=== PATIENT | male | born 1960 | race Caucasian/White ===

== ENCOUNTER 2017-05-09 17:43 | Inpatient (IN) | payer OTHER, BC, MEDICARE ==
[~2017-05-09] VITALS: Ht 177.8 cm; Wt 129.8 kg
[2017-05-09] MEDS ORDERED: ETOMIDATE 20 MG/10 ML VIAL ONE ×2 (17:46→18:05)
[2017-05-09] MEDS ORDERED: SUCCINYLCHOLINE CHLORIDE 200 MG/10 ML VIAL ONE (17:46)
[2017-05-09] MEDS ORDERED: ceFAZolin 2 GM PREMIX 50 ML ONE (17:49)
[2017-05-09] MEDS ORDERED: PROPOFOL 1000 MG/100 ML INJ 100 ML ONE ×2 (17:52→20:15)
[2017-05-09] MEDS ORDERED: HYDROmorphone HCL PF 1 MG/ML VIAL ONE (18:05)
[2017-05-09 18:08] LABS: I-STAT POTASSIUM 3.9 MMOL/L (3.5-4.9)
[2017-05-09 18:10] LABS: AUTOMATED NEUTROPHIL # 6.1 TH/MM3 (1.8-7.7); BASOPHIL # 0.1 TH/MM3 (0-0.2); BASOPHIL % 0.6 % (0.0-2.0); EOSINOPHIL # 0.3 TH/MM3 (0-0.4); EOSINOPHIL % 2.3 % (0.0-4.0); HEMATOCRIT 47.3 % (39.0-51.0); LYMPHOCYTE # 5.6 TH/MM3 (1.0-4.8); MEAN CORPUSCULAR HEMOGLOBIN 32.1 PG (27.0-34.0); MEAN CORPUSCULAR HGB CONC 34.1 % (32.0-36.0); MONO % 9.1 % (0.0-8.0); PLATELET COUNT 323 TH/MM3 (150-450); RED BLOOD COUNT 5.04 MIL/MM3 (4.50-5.90); RED CELL DISTRIBUTION WIDTH 13.7 % (11.6-17.2); WHITE BLOOD COUNT 13.3 TH/MM3 (4.0-11.0)
[2017-05-09 18:12] LABS: HEMO FLAGS AUTO DIFF
[2017-05-09] MEDS ORDERED: IOHEXOL 350 MG/ML 10 ML VIAL (for RAD DIAG) IVCONTRAST ONE (18:20)
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
[2017-05-09 18:25] LABS: INTERNATIONAL NORMALIZED RATIO 1.2 RATIO; PROTHROMBIN TIME - PATIENT 13.5 SEC (9.8-11.6)
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
[2017-05-09 18:26] LABS: APTT (PATIENT) 26.6 SEC (24.3-30.1)
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
[2017-05-09 18:40] VITALS: O2SAT 99
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
[2017-05-09 18:45] LABS: BANDS 2 % (0-6); EOSINOPHILS 4 % (0-4); NEUTROPHIL # MANUAL DIFF 6.4 TH/MM3 (1.8-7.7); PLATELET ESTIMATE SMEAR NORMAL (NORMAL); PLATELET MORPHOLOGY NORMAL (NORMAL); POLYS (SEG NEUTROPHILS) 46 % (16-70); SCAN/DIFF FINAL DIFF MANUAL; WBC DIFF SAMPLE 100
[2017-05-09] MEDS ORDERED: ONDANSETRON HCL 4 MG/2 ML VIAL IV PRN (18:45)
[2017-05-09] MEDS ORDERED: CHLORHEXIDINE GLUCONATE 2 % 1 PACK (2 CLOTHS) TOP PRN (18:45)
[2017-05-09] MEDS ORDERED: fentaNYL DRIP 250 ML IV PRN (18:45)
[2017-05-09] MEDS ORDERED: PROPOFOL 1000 MG/100 ML INJ 100 ML IV PRN ×2 (18:45)
[2017-05-09] MEDS ORDERED: ENALAPRILAT 1.25 MG/ML VIAL IV PRN (18:45)
[2017-05-09] MEDS ORDERED: MAGNESIUM HYDROXIDE SUSP 30 ML CUP PO PRN (18:45)
[2017-05-09] MEDS ORDERED: MISCELLANEOUS NURSING INFORMATION XX SCH (18:45)
[2017-05-09 18:46] VITALS: O2SAT 100
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
[2017-05-09 18:59] LABS: BLOOD GAS BASE EXCESS -0.7 mmol/L (-2-2); BLOOD GAS CARBOXYHEMOGLOBIN 3.7 % (0-4); BLOOD GAS HCO3 25 mmol/L (22-26); BLOOD GAS METHEMOGLOBIN 0.9 % (0-2); BLOOD GAS O2 HGB SATURATION 95 % (90-100); BLOOD GAS OXYGEN CONTENT 20.5 Vol % (12.0-20.0); BLOOD GAS PCO2 50 mmHg (38-42); BLOOD GAS PO2 359 mmHg (61-120); BLOOD GAS TOTAL HGB 14.7 G/DL (12.0-16.0); TEMP CORR TO 98.6
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
[2017-05-09 19:00] LABS: CRITICAL VALUE NO; DRAW SITE LT RADIAL; FIO2 100 %; NUMBER OF ARTERIAL PUNCTURES 1; OXYGEN DEVICE VENTILATOR; STAT YES; ULNAR PULSE PRESENT; VENT SETTINGS SEE COMMENTS
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
[2017-05-09] MEDS: SODIUM CHLOR 0.9% 1000 ML INJ 1,000 ML IV SCH (19:45)
[2017-05-09 20:00] VITALS: BP_SYST 105; BP_DIAS 58; BP_DIAS 64; PULSE 78; PULSE 88; PULSE 96; RESP 22; TEMP 97; TEMP 98; O2SAT 100
[2017-05-09] MEDS ORDERED: SODIUM CHLOR 0.9% 1000 ML INJ 1,000 ML IV SCH (20:00)
--- NOTE | 2017-05-09 20:09 | PD.PROCEDR ---
Procedure Note Procedure Procedure: Arterial Line Placement Left radial arterial line Diagnosis: Traumatic brain injury Indications: And need for beat to beat hemodynamic monitoring Consent: Emergent Description of the Procedure: The left wrist was prepped and draped sterilely. 1% lidocaine was used for local anesthesia. The pulse was located and a needle was advanced into the artery. A 20 gauge, 12 cm catheter was advanced into the artery using a modified Seldinger technique. The catheter was sutured to the skin and a sterile dressing was applied. The catheter was connected to a pressure transducer and an arterial waveform was noted. There were no immediate complications noted. There was minimal EBL. I personally performed the procedure. Elder Perez MD May 09, 2017 20:09
--- NOTE | 2017-05-09 20:11 | PD.PROCEDR ---
Procedure Note Procedure Central Line Procedure Note Left subclavian triple lumen catheter Diagnosis: Traumatic brain injury Indications: Need for highly potent vasoactive substances Consent: Emergent Anesthesia: 1% lidocaine locally Description of the Procedure: The patient was placed in the supine, mild- Trendelenburg position. The area was prepped and draped sterilely. A 19g needle was inserted under negative pressure aspiration and dark venous blood was obtained. A guidewire was inserted easily without resistance. A small incision was made using a #11 blade. Using a modified Seldinger technique, the dilator and 7 Hungarian, 20 cm catheter were advanced over the guidewire without resistance. All ports were aspirated and flushed, and had brisk blood return. The line was secured at 16cm at the skin using 2-0 silk interrupted sutures. A Biopatch and Transparent sterile dressing were applied. There were no immediate complications noted. There was minimal EBL. The patient tolerated the procedure well. Ultrasound Guidance: Ultrasound guidance was used to identify the left axillary/ subclavian vein. The vascular anatomy of the left axilla/left anterior chest was normal. The vessel was cannulated under direct, real-time ultrasound visualization. After placement of the guidewire, confirmation of the guidewire in the lumen of the vessel was made using ultrasound visualization, before dilation of the tract. A Chest x-ray has been ordered. I personally performed the procedure. Elder Perez MD May 09, 2017 20:11
[2017-05-09 20:15] VITALS: O2SAT 100
[2017-05-09] MEDS ORDERED: TERBUTALINE INJ 1 MG/ML AMP SQ PRN (20:15)
[2017-05-09] MEDS ORDERED: NOREPINEPHRINE INJ 4 MG in SODIUM CHLOR 0.9% 250 ML INJ 246 ML IV PRN (20:15)
[2017-05-09] MEDS ORDERED: fentaNYL 2,500 MCG/NS 250 ML IV PRN (20:30)
[2017-05-09] MEDS ORDERED: NOREPINEPHRINE 4 MG/D5W 250 ML IV PRN (20:30)
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
[2017-05-09] MEDS ORDERED: MIDAZOLAM HCL 5 MG/ML VIAL (1 ML) IV ONE (21:15)
[2017-05-09] MEDS ORDERED: SODIUM CHLORIDE 23.4% INJ 240 MEQ in SYRINGE/BAG 1 EA IV ONE (21:15)
[2017-05-09] MEDS ORDERED: levETIRAcetam 1000 MG INJ 100 ML IV ONE (21:15)
[2017-05-09] MEDS ORDERED: NOREPINEPHRINE 4 MG/4 ML AMP ONE (21:32)
--- NOTE | 2017-05-09 21:36 | PD.OP ---
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 No family was available for informed consent. The procedure was considered medically necessary on an urgent basis. Appropriate timeout procedure was performed with all personnel present and in agreement The patient was given intravenous sedation during the procedure. The head of the bed was elevated 30 with the head and neck in neutral position. The right frontal area was shaved with clippers and sterilely prepped and draped. 1% Xylocaine with epinephrine was used for local infiltration over the small incision site which was made in the right frontal region approximately 1 cm anterior to the coronal suture in the mid pupillary line and carried sharply down to the cranium. The hand drill was used to place a single twist drill opening in the cranium and the dura was perforated with the 18-gauge spinal needle. The ICP bolt was secured to the cranium. The transducer was zeroed and placed intracranially and secured to the bolt. The patient's initial ICP was 22 mm water pressure with good waveform. A sterile dressing was applied There is no significant bleeding The patient's neurologic exam remained stable following the procedure. Ike Zamarripa MD May 09, 2017 21:36
--- NOTE | 2017-05-09 21:39 | PD.OP ---
Operative Report Date of Surgery: May 09, 2017 Preoperative Diagnosis: (1) Traumatic brain injury Traumatic brain injury Postoperative Diagnosis: (1) Traumatic brain injury Traumatic brain injury Procedure: Right frontal twist drill for external ventricular drain placement Anesthesia: Intravenous sedation 1% Xylocaine local anesthetic Surgeon: Ike Zamarripa [employer] Bus Driver(s): None Operation and Findings: Findings: The patient had previously undergone intracranial pressure monitor placement. ICPs gradually increasing to high 20s to low 30s despite intravenous sedation, ventilatory and fluid management. External ventricular drainage catheter indicated to decrease CSF pressure and ICP. Procedure in detail: The procedure was performed in the surgical intensive care unit. No family was available for informed consent. The procedure was considered medically necessary on an urgent basis. Appropriate timeout procedure was performed with all personnel present and in agreement The patient was placed in supine position with the head and neck in neutral position and the head of the bed elevated approximately 20. The right frontal region was shaved with clippers and sterilely prepped and draped. One percent Xylocaine without epinephrine was used for local infiltration over the small incision site which was made approximately 9-10 cm above the right supraorbital rim, approximately 3-1/2 to 4 cm lateral to the midline, in the mid pupillary line just anterior to the coronal suture. The hand drill was used to make a single twist drill opening in the cranium and the dura was perforated with the trocar. The Codman Bactiseal ventriculostomy catheter was advanced to a depth of 6-7 cm intracranial in a single pass with good return of spinal fluid. Opening pressure was 20 centimeter water The catheter was tunneled to the posterior frontal region with a trocar and secured to the skin with 3-0 nylon suture which was also used to close the small incision. A sterile bactericidal dressing was applied The catheter was connected to the drainage reservoir, and there was good drainage of fluid. The patient's neurologic exam remained stable following the procedure No specimen was sent There was no significant bleeding Ike Zamarripa MD May 09, 2017 21:39
--- NOTE | 2017-05-09 21:44 | RADRPT ---
EXAM DATE/TIME: 05/09/2017 20:12 [facility] COMPARISON: CT THORAX W CONTRAST, May 09, 2017, 18:10. CHEST SINGLE AP, May 09, 2017, 17:37. INDICATIONS : Evaluate for central line placement. MEDICAL HISTORY : None. SURGICAL HISTORY : None. ENCOUNTER: Subsequent ACUITY: 1 day PAIN SCORE: Non-responsive. LOCATION: chest FINDINGS: A single view of the chest demonstrates a left subclavian line with the tip seen at the distal aspect the left subclavian vein region. A pneumothorax is not seen. ET tube and NG tube are well placed. Th e heart size is normal. There is increased density at the medial left base. Right lung is grossly jorge ar. CONCLUSION: 1. Left subclavian line in place with the tip at the distal left subclavian region. No pneumothorax i s seen. 2. Consolidation or atelectasis of the medial left base. Kip Ramirez MD on May 09, 2017 at 21:41 Board Certified Radiologist. This report was verified electronically.
[2017-05-09] MEDS ORDERED: MAGNESIUM OXIDE 400 MG TAB PO PRN (22:00)
[2017-05-09] MEDS ORDERED: POTASSIUM PHOSPHATE MONOBASIC 500 MG TAB PO/TUBE PRN (22:00)
[2017-05-09] MEDS ORDERED: MIDAZOLAM HCL 5 MG/5 ML VIAL IV PUSH PRN (22:00)
[2017-05-09] MEDS ORDERED: POTASSIUM PHOSPHATE MONOBASIC 500 MG TAB PO PRN (22:00)
[2017-05-09] MEDS ORDERED: MAGNESIUM SULFATE INJ 2 GM in SODIUM CHLORIDE 0.9% INJ 96 ML IV PRN (22:00)
[2017-05-09] MEDS ORDERED: POTASSIUM PHOSPHATE INJ 30 MMOL in SODIUM CHLOR 0.9% 250 ML INJ 250 ML IV PRN (22:00)
[2017-05-09] MEDS ORDERED: MAGNESIUM SULFATE INJ 4 GM in SODIUM CHLORIDE 0.9% INJ 92 ML IV PRN (22:00)
[2017-05-09] MEDS ORDERED: SODIUM PHOSPHATE INJ 30 MMOL in SODIUM CHLOR 0.9% 250 ML INJ 240 ML IV PRN (22:00)
[2017-05-09] MEDS ORDERED: POTASSIUM CHLORIDE 25 MEQ EFFERVESCENT TAB PO PRN (22:00)
[2017-05-09 22:28] LABS: BLOOD GAS BASE EXCESS -0.9 mmol/L (-2-2); BLOOD GAS CARBOXYHEMOGLOBIN 2.6 % (0-4); BLOOD GAS HCO3 23 mmol/L (22-26); BLOOD GAS METHEMOGLOBIN 1.2 % (0-2); BLOOD GAS O2 HGB SATURATION 96 % (90-100); BLOOD GAS PCO2 36 mmHg (38-42); BLOOD GAS PO2 184 mmHg (61-120); BLOOD GAS TOTAL HGB 13.1 G/DL (12.0-16.0); CRITICAL VALUE NO; OXYGEN DEVICE VENTILATOR; TEMP CORR TO 98.6
[2017-05-09 22:29] LABS: DRAW SITE ALINE; FIO2 50 %; STAT NO
[2017-05-09 22:29] LABS: BLOOD GAS CARBOXYHEMOGLOBIN 3.3 % (0-4); BLOOD GAS HCO3 25 mmol/L (22-26); BLOOD GAS METHEMOGLOBIN 0.9 % (0-2); BLOOD GAS O2 HGB SATURATION 94 % (90-100); BLOOD GAS OXYGEN CONTENT 19.4 Vol % (12.0-20.0); BLOOD GAS PCO2 44 mmHg (38-42); BLOOD GAS PO2 129 mmHg (61-120); BLOOD GAS TOTAL HGB 14.5 G/DL (12.0-16.0); CRITICAL VALUE NO; OXYGEN DEVICE VENTILATOR; TEMP CORR TO 98.6
[2017-05-09 22:30] LABS: DRAW SITE ALINE; FIO2 50 %; STAT NO
--- NOTE | 2017-05-09 23:13 | RADRPT ---
EXAM DATE/TIME: 05/09/2017 21:58 [facility] COMPARISON: CT BRAIN W/O CONTRAST, May 09, 2017, 18:05. INDICATIONS : Follow up trauma; post ventriculostomy / ICP monitor. RADIATION DOSE: 69.15 CTDIvol (mGy) MEDICAL HISTORY : Non-responsive. SURGICAL HISTORY : Non-responsive. ENCOUNTER: Subsequent ACUITY: 1 day PAIN SCALE: Non-responsive LOCATION: cranial TECHNIQUE: Multiple contiguous axial images were obtained of the head. Using automated exposure control and adj ustment of the mA and/or kV according to patient size, radiation dose was kept as low as reasonably a chievable to obtain optimal diagnostic quality images. DICOM format image data is available electro nically for review and comparison. FINDINGS: CEREBRUM: There is diffuse subarachnoid hemorrhage. Again noted is a 3.3 cm left frontal lobe parenchymal hemor rhage. There is also parenchymal hemorrhage seen at the lateral left temporal lobe. There is a possib le focal parenchymal hemorrhage in the superior right frontal lobe and anterior right temporal lobe w hich were present previously. There is a minimal subdural hemorrhage seen at the posterior left parie michael lobe. There is a minimal subdural hemorrhage seen at the anterior right frontal lobe. There likel y is subdural hemorrhage along the tentorium especially on the right. All these areas of hemorrhage w ere present previously and appear unchanged. Midline shift is not seen. This ventriculostomy tube shawn jermaine from the right frontal approach with the tip overlying the left foramen of Monro region. There is a pressure monitor in place. The ventricles do appear compressed. The basal cisterns are moderately narrowed but still open. This configuration is unchanged.. POSTERIOR FOSSA: The cerebellum and brainstem are intact. The 4th ventricle is compressed. The cerebellopontine angl e is unremarkable. EXTRACRANIAL: The visualized portion of the orbits is intact. Posterior scalp and left periorbital soft tissue swel ling is seen. SKULL: Again noticed the left frontal and parietal bone fractures. CONCLUSION: 1. Persistent subarachnoid, bilateral subdural, and scattered parenchymal hemorrhages as described ab ove. These were present previously and are unchanged. There is effacement of the basal cisterns and c ompression of the ventricles. This configuration is unchanged. 2. Ventriculostomy tube and pressure monitor in place. 3. No new areas of hemorrhage or new findings are seen. Kip Ramirez MD on May 09, 2017 at 23:04 Board Certified Radiologist. This report was verified electronically.
[2017-05-10] VITALS (18 sets, daily range): BP systolic 105–149; BP diastolic 58–73; PULSE 68–96; RESP 22; TEMP 98–99.1; O2SAT 98–100
[2017-05-10] MEDS: PROPOFOL 1000 MG/100 ML IV PRN ×8 (00:09→22:16)
[2017-05-10] MEDS: PANTOPRAZOLE SODIUM 40 MG VIAL IVP SCH ×2 (00:10→20:31)
[2017-05-10] MEDS: 3% SALINE INJ 500 ML IV SCH ×2 (00:14→11:02)
[2017-05-10] MEDS: fentaNYL DRIP 250 ML IV PRN ×4 (00:15→23:27)
[2017-05-10] MEDS: SODIUM CHLOR 0.9% 1000 ML INJ 1,000 ML IV SCH ×3 (03:45→20:33)
[2017-05-10 03:48] LABS: AUTOMATED NEUTROPHIL # 5.8 TH/MM3 (1.8-7.7); BASOPHIL % 0.4 % (0.0-2.0); EOSINOPHIL # 0.1 TH/MM3 (0-0.4); EOSINOPHIL % 1.3 % (0.0-4.0); HEMATOCRIT 36.2 % (39.0-51.0); HEMO FLAGS DIFF FINAL; LYMPH % 25.3 % (9.0-44.0); LYMPHOCYTE # 2.4 TH/MM3 (1.0-4.8); MEAN CELL VOLUME 93.1 FL (80.0-100.0); MEAN CORPUSCULAR HEMOGLOBIN 31.6 PG (27.0-34.0); MONO % 11.3 % (0.0-8.0); NEUT % 61.7 % (16.0-70.0); PLATELET COUNT 261 TH/MM3 (150-450); RED BLOOD COUNT 3.88 MIL/MM3 (4.50-5.90); RED CELL DISTRIBUTION WIDTH 13.6 % (11.6-17.2); WHITE BLOOD COUNT 9.4 TH/MM3 (4.0-11.0)
[2017-05-10] MEDS: CHLORHEXIDINE GLUCONATE 2 % 1 PACK (2 CLOTHS) TOP SCH (04:00)
[2017-05-10] MEDS ORDERED: TERBUTALINE INJ 1 MG/ML AMP SQ PRN ×2 (04:30→05:45)
--- NOTE | 2017-05-10 05:30 | RADRPT ---
EXAM DATE/TIME: 05/10/2017 03:56 [facility] COMPARISON: CHEST SINGLE AP, May 09, 2017, 20:12. INDICATIONS : Trauma. MEDICAL HISTORY : Non-responsive. SURGICAL HISTORY : Non-responsive. ENCOUNTER: Subsequent ACUITY: 1 day PAIN SCORE: Non-responsive. LOCATION: Bilateral chest FINDINGS: A single view of the chest demonstrates endotracheal tube in satisfactory position. NG tube in stomac h. Minimal subsegmental basilar air space disease. No pneumothorax. Left central line in left brachio cephalic vein.. CONCLUSION: 1. Support apparatus in good position. Subsegmental basilar airspace disease. Santiago Dodd MD on May 10, 2017 at 5:28 Board Certified Radiologist. This report was verified electronically.
[2017-05-10] MEDS ORDERED: NOREPINEPHRINE 4 MG/4 ML AMP ONE (05:42)
[2017-05-10] MEDS: NOREPINEPHRINE INJ 4 MG in SODIUM CHLOR 0.9% 250 ML INJ 246 ML IV PRN ×3 (05:58→16:29)
[2017-05-10] MEDS ORDERED: BISACODYL 10 MG SUPP RECTAL PRN (07:45)
[2017-05-10] MEDS: CHLORHEXIDINE 0.12% (ORAL KIT) 15 ML CUP MT SCH ×2 (08:00→20:00)
[2017-05-10] MEDS: DOCUSATE SODIUM 100 MG/10 ML UDC PO SCH ×2 (09:00→20:31)
[2017-05-10] MEDS: LACTULOSE SYRUP 20 GM/30 ML CUP PO SCH (09:27)
[2017-05-10] MEDS: levETIRAcetam INJ 500 MG in SODIUM CHLORIDE 0.9% INJ 100 ML IV SCH ×2 (09:28→20:31)
[2017-05-10 09:44] LABS: BLOOD GAS BASE EXCESS -1.9 mmol/L (-2-2); BLOOD GAS CARBOXYHEMOGLOBIN 1.6 % (0-4); BLOOD GAS HCO3 22 mmol/L (22-26); BLOOD GAS METHEMOGLOBIN 1.1 % (0-2); BLOOD GAS O2 HGB SATURATION 96 % (90-100); BLOOD GAS OXYGEN CONTENT 16.9 Vol % (12.0-20.0); BLOOD GAS PCO2 33 mmHg (38-42); BLOOD GAS PO2 127 mmHg (61-120); BLOOD GAS TOTAL HGB 12.3 G/DL (12.0-16.0); CRITICAL VALUE NO; OXYGEN DEVICE VENTILATOR; TEMP CORR TO 98.6
[2017-05-10 09:45] LABS: DRAW SITE ART LINE; FIO2 35 %; STAT NO
[2017-05-10] MEDS ORDERED: MIDAZOLAM HCL 5 MG/ML VIAL (1 ML) ONE (10:29)
[2017-05-10] MEDS ORDERED: MIDAZOLAM HCL 5 MG/ML VIAL (1 ML) IV ONE (10:45)
[2017-05-10] MEDS ORDERED: SODIUM CHLORIDE 23.4% INJ 240 MEQ in SYRINGE/BAG 1 EA IV ONE (10:45)
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
--- NOTE | 2017-05-10 12:46 | RADRPT ---
EXAM DATE/TIME: 05/10/2017 12:09 [facility] COMPARISON: CT BRAIN W/O CONTRAST, May 09, 2017, 21:58. INDICATIONS : Follow up for intracranial hemmorhage. RADIATION DOSE: 64.99 CTDIvol (mGy) MEDICAL HISTORY : Non-responsive. SURGICAL HISTORY : Non-responsive. ENCOUNTER: Subsequent ACUITY: 1 day PAIN SCALE: Non-responsive LOCATION: cranial TECHNIQUE: Multiple contiguous axial images were obtained of the head. Using automated exposure control and adj ustment of the mA and/or kV according to patient size, radiation dose was kept as low as reasonably a chievable to obtain optimal diagnostic quality images. DICOM format image data is available electro nically for review and comparison. FINDINGS: Diffuse subarachnoid blood, subdural tentorial blood and extensive cortical contusions remain. The c ortical contusions in parietal hemorrhages are blossoming as expected. There is generalized edema wi th ventriculostomy in good position. Both pressure margin is evident. Marked loss of shay-white mat ter differentiation is evident. There is no significant extra-axial blood that could be drained. CONCLUSION: Markedly abnormal CT scan with progression of cortical and parenchymal hemorrhages particularly on th e left. There is no midline shift. Diffuse axonal shear is very likely. Ernie Stapleton MD FACR on May 10, 2017 at 12:42 Board Certified Radiologist. This report was verified electronically.
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
[2017-05-10 15:47] LABS: BICARBONATE 22.8 MEQ/L (21.0-32.0); POTASSIUM 3.5 MEQ/L (3.5-5.1)
[2017-05-10] MEDS: POTASSIUM CHLOR 20 MEQ PREMIX 100 ML IV PRN (16:46)
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
[2017-05-10] MEDS: SODIUM CHLORIDE 0.9% FLUSH 10 ML FLUSH IV FLUSH PRN (20:31)
[2017-05-10] MEDS: BACITRACIN TOP OINT 15 GM TUBE TOP SCH ×2 (20:31→20:33)
[2017-05-10] MEDS: MIDAZOLAM 100 MG/100 ML INJ 100 ML IV PRN (20:59)
[2017-05-11] VITALS (18 sets, daily range): BP systolic 119–158; BP diastolic 60–85; PULSE 72–88; RESP 22–24; TEMP 97.7–99; O2SAT 99–100
[2017-05-11] MEDS: NOREPINEPHRINE INJ 4 MG in SODIUM CHLOR 0.9% 250 ML INJ 246 ML IV PRN ×3 (00:25→19:52)
[2017-05-11] MEDS: PROPOFOL 1000 MG/100 ML IV PRN ×6 (01:42→18:12)
[2017-05-11] MEDS ORDERED: MIDAZOLAM HCL 5 MG/ML VIAL (1 ML) IV ONE (03:30)
[2017-05-11] MEDS ORDERED: SODIUM CHLORIDE 23.4% INJ 240 MEQ in SYRINGE/BAG 1 EA IV ONE ×2 (03:30→12:00)
[2017-05-11 03:31] LABS: BLOOD GAS BASE EXCESS -3.6 mmol/L (-2-2); BLOOD GAS CARBOXYHEMOGLOBIN 1.5 % (0-4); BLOOD GAS HCO3 21 mmol/L (22-26); BLOOD GAS O2 HGB SATURATION 96 % (90-100); BLOOD GAS OXYGEN CONTENT 15.5 Vol % (12.0-20.0); BLOOD GAS PCO2 34 mmHg (38-42); BLOOD GAS PO2 115 mmHg (61-120); BLOOD GAS TOTAL HGB 11.3 G/DL (12.0-16.0); CRITICAL VALUE NO; OXYGEN DEVICE VENTILATOR; TEMP CORR TO 98.6
[2017-05-11 03:32] LABS: DRAW SITE ART LINE; FIO2 35 %; STAT YES; VENT SETTINGS PRVC/AC
[2017-05-11] MEDS: SODIUM CHLOR 0.9% 1000 ML INJ 1,000 ML IV SCH ×3 (03:33→18:12)
[2017-05-11] MEDS: CHLORHEXIDINE GLUCONATE 2 % 1 PACK (2 CLOTHS) TOP SCH (04:00)
[2017-05-11 04:58] LABS: AUTOMATED NEUTROPHIL # 6.7 TH/MM3 (1.8-7.7); BASOPHIL % 0.3 % (0.0-2.0); EOSINOPHIL # 0.3 TH/MM3 (0-0.4); EOSINOPHIL % 2.6 % (0.0-4.0); HEMATOCRIT 32.7 % (39.0-51.0); HEMO FLAGS DIFF FINAL; LYMPH % 15.8 % (9.0-44.0); LYMPHOCYTE # 1.5 TH/MM3 (1.0-4.8); MEAN CELL VOLUME 94.7 FL (80.0-100.0); MEAN CORPUSCULAR HEMOGLOBIN 33.1 PG (27.0-34.0); MONO % 11.3 % (0.0-8.0); PLATELET COUNT 186 TH/MM3 (150-450); RED BLOOD COUNT 3.45 MIL/MM3 (4.50-5.90); WHITE BLOOD COUNT 9.6 TH/MM3 (4.0-11.0)
[2017-05-11 05:10] LABS: ANION GAP 8 MEQ/L (5-15); AST (GOT) 16 U/L (15-37); BICARBONATE 22.5 MEQ/L (21.0-32.0); BLOOD UREA NITROGEN 6 MG/DL (7-18); CHLORIDE 125 MEQ/L (98-107); GLOMERULAR FILTRATION RATE 101 ML/MIN (>89); POTASSIUM 3.3 MEQ/L (3.5-5.1); SODIUM (NA) 155 MEQ/L (136-145)
[2017-05-11 05:14] LABS: ALKALINE PHOSPHATASE 58 U/L (45-117); ALT (GPT) 9 U/L (12-78); TOTAL BILIRUBIN ADULT 0.6 MG/DL (0.2-1.0)
[2017-05-11] MEDS: 3% SALINE INJ 500 ML IV SCH (06:01)
[2017-05-11] MEDS: MIDAZOLAM 100 MG/100 ML INJ 100 ML IV PRN ×2 (06:01→14:40)
--- NOTE | 2017-05-11 06:12 | RADRPT ---
EXAM DATE/TIME: 05/11/2017 05:01 [place] COMPARISON: CHEST SINGLE AP, May 10, 2017, 3:56. INDICATIONS : Shortness of breath. MEDICAL HISTORY : Non-responsive SURGICAL HISTORY : Non-responsive ENCOUNTER: Subsequent ACUITY: 3 days PAIN SCORE: Non-responsive. LOCATION: Bilateral chest FINDINGS: A single view of the chest demonstrates endotracheal tube tip in good position. NG enters stomach. Mi ld basilar airspace disease most characteristic of atelectasis. Left central line in left brachioceph alic vein. No significant effusion. CONCLUSION: 1. Increase in basilar airspace disease since May 2. Support apparatus unchanged. Santiago Dodd MD on May 11, 2017 at 6:09 Board Certified Radiologist. This report was verified electronically.
[2017-05-11] MEDS: POTASSIUM CHLOR 20 MEQ PREMIX 100 ML IV PRN (07:41)
[2017-05-11] MEDS: DOCUSATE SODIUM 100 MG/10 ML UDC PO SCH ×2 (09:10→19:51)
[2017-05-11] MEDS: LACTULOSE SYRUP 20 GM/30 ML CUP PO SCH (09:10)
[2017-05-11] MEDS: levETIRAcetam INJ 500 MG in SODIUM CHLORIDE 0.9% INJ 100 ML IV SCH ×2 (09:10→19:51)
[2017-05-11] MEDS: BACITRACIN TOP OINT 15 GM TUBE TOP SCH ×2 (09:11→19:51)
[2017-05-11] MEDS: CHLORHEXIDINE 0.12% (ORAL KIT) 15 ML CUP MT SCH ×2 (09:11→19:51)
--- NOTE | 2017-05-11 09:23 | EKG ---
Date Performed: 05/10/2017 Time Performed: 16:58:24 PTAGE: 89 years EKG: Atrial fibrillation. Extensive ST-T changes may be due to myocardial ischemia Abnormal ECG NO PREVIOUS TRACING DOCTOR: Bret Alonzo Interpretating Date/Time 05/11/2017 09:21:16
[2017-05-11] MEDS: fentaNYL DRIP 250 ML IV PRN ×2 (10:24→19:52)
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
[2017-05-11] MEDS: PANTOPRAZOLE SODIUM 40 MG VIAL IVP SCH (19:51)
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
[2017-05-12] VITALS (21 sets, daily range): BP systolic 122–141; BP diastolic 56–66; PULSE 68–90; RESP 22–24; TEMP 97.1–98.2; O2SAT 99–100
[2017-05-12] MEDS: PROPOFOL 1000 MG/100 ML IV PRN ×9 (00:34→23:05)
[2017-05-12] MEDS: 3% SALINE INJ 500 ML IV SCH ×2 (00:35→16:22)
[2017-05-12] MEDS: SODIUM CHLOR 0.9% 1000 ML INJ 1,000 ML IV SCH ×3 (02:23→21:33)
[2017-05-12] MEDS: MIDAZOLAM 100 MG/100 ML INJ 100 ML IV PRN ×3 (02:23→21:31)
[2017-05-12] MEDS: CHLORHEXIDINE GLUCONATE 2 % 1 PACK (2 CLOTHS) TOP SCH (04:00)
[2017-05-12 05:06] LABS: AUTOMATED NEUTROPHIL # 5.1 TH/MM3 (1.8-7.7); BASOPHIL % 0.3 % (0.0-2.0); EOSINOPHIL # 0.3 TH/MM3 (0-0.4); EOSINOPHIL % 3.5 % (0.0-4.0); HEMO FLAGS DIFF FINAL; LYMPH % 16.9 % (9.0-44.0); LYMPHOCYTE # 1.2 TH/MM3 (1.0-4.8); MEAN CELL VOLUME 94.4 FL (80.0-100.0); MEAN CORPUSCULAR HEMOGLOBIN 32.2 PG (27.0-34.0); MEAN CORPUSCULAR HGB CONC 34.1 % (32.0-36.0); MONO % 8.8 % (0.0-8.0); NEUT % 70.5 % (16.0-70.0); PLATELET COUNT 169 TH/MM3 (150-450); RED BLOOD COUNT 3.28 MIL/MM3 (4.50-5.90); RED CELL DISTRIBUTION WIDTH 13.9 % (11.6-17.2); WHITE BLOOD COUNT 7.2 TH/MM3 (4.0-11.0)
[2017-05-12 05:17] LABS: BLOOD GAS BASE EXCESS -6.7 mmol/L (-2-2); BLOOD GAS CARBOXYHEMOGLOBIN 1.4 % (0-4); BLOOD GAS HCO3 17 mmol/L (22-26); BLOOD GAS METHEMOGLOBIN 0.8 % (0-2); BLOOD GAS O2 HGB SATURATION 96 % (90-100); BLOOD GAS OXYGEN CONTENT 14.2 Vol % (12.0-20.0); BLOOD GAS PCO2 28 mmHg (38-42); BLOOD GAS PO2 102 mmHg (61-120); BLOOD GAS TOTAL HGB 10.4 G/DL (12.0-16.0); CRITICAL VALUE NO; OXYGEN DEVICE VENTILATOR; TEMP CORR TO 98.6
[2017-05-12 05:18] LABS: DRAW SITE ALINE; FIO2 35 %; STAT NO; ULNAR PULSE PRESENT; VENT SETTINGS PRVC24/550/1.0/+5
[2017-05-12] MEDS: fentaNYL DRIP 250 ML IV PRN ×2 (05:18→13:42)
[2017-05-12 05:27] LABS: ANION GAP 6 MEQ/L (5-15); AST (GOT) 19 U/L (15-37); BICARBONATE 19.7 MEQ/L (21.0-32.0); BLOOD UREA NITROGEN 6 MG/DL (7-18); CHLORIDE 127 MEQ/L (98-107); GLOMERULAR FILTRATION RATE 136 ML/MIN (>89); SODIUM (NA) 153 MEQ/L (136-145)
[2017-05-12 05:29] LABS: ALT (GPT) 10 U/L (12-78)
[2017-05-12 05:30] LABS: ALKALINE PHOSPHATASE 61 U/L (45-117); TOTAL BILIRUBIN ADULT 0.6 MG/DL (0.2-1.0)
[2017-05-12] MEDS: NOREPINEPHRINE INJ 4 MG in SODIUM CHLOR 0.9% 250 ML INJ 246 ML IV PRN ×2 (06:10→14:37)
--- NOTE | 2017-05-12 06:23 | RADRPT ---
EXAM DATE/TIME: 05/12/2017 05:41 [facility] COMPARISON: CHEST SINGLE AP, May 11, 2017, 5:01. INDICATIONS : Shortness of breath. MEDICAL HISTORY : Unobtainable SURGICAL HISTORY : Unobtainable ENCOUNTER: Subsequent ACUITY: 4 - 6 days PAIN SCORE: Non-responsive. LOCATION: Bilateral chest FINDINGS: Persistent bibasilar consolidation and small effusions. No pneumothorax. Heart size stable, upper drake its of normal. Endotracheal tube tip is approximately 5 cm above the dagoberto. Nasogastric tube is coiled in the stoma ch. CONCLUSION: No significant change. Bibasilar consolidation and small pleural effusions persist. Kip Luong MD on May 12, 2017 at 6:20 Board Certified Radiologist. This report was verified electronically.
[2017-05-12] MEDS: POTASSIUM CHLOR 20 MEQ PREMIX 100 ML IV PRN ×2 (06:49→13:01)
[2017-05-12] MEDS: LACTULOSE SYRUP 20 GM/30 ML CUP PO SCH (08:25)
[2017-05-12] MEDS: DOCUSATE SODIUM 100 MG/10 ML UDC PO SCH ×2 (08:25→21:03)
[2017-05-12] MEDS: CHLORHEXIDINE 0.12% (ORAL KIT) 15 ML CUP MT SCH ×2 (08:26→21:03)
[2017-05-12] MEDS: levETIRAcetam INJ 500 MG in SODIUM CHLORIDE 0.9% INJ 100 ML IV SCH ×2 (08:26→21:03)
[2017-05-12] MEDS: BACITRACIN TOP OINT 15 GM TUBE TOP SCH ×2 (08:27→21:03)
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
[2017-05-12] MEDS: POTASSIUM CHLOR 40 MEQ PREMIX 100 ML IV PRN (09:23)
--- NOTE | 2017-05-12 10:57 | RADRPT ---
EXAM DATE/TIME: 05/12/2017 09:34 [facility] COMPARISON: No previous studies available for comparison. INDICATIONS : Swelling in left knee. MEDICAL HISTORY : unobtainable. SURGICAL HISTORY : unobtainable. ENCOUNTER: Subsequent ACUITY: 3 days PAIN SCORE: Non-responsive. LOCATION: Left Knee FINDINGS: There is no effusion. There is severe osteoarthritis of the knee and previous surgery to the ACL with interference screws noted. Severe narrowing of the medial greater than lateral tibiofemoral compartm ents identified. Patellar osteophytosis and patellofemoral narrowing. No fracture or dislocation. CONCLUSION: Osteoarthritis. Zain Vicente MD on May 12, 2017 at 10:55 Board Certified Radiologist. This report was verified electronically.
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
[2017-05-12] MEDS ORDERED: SODIUM CHLORIDE 23.4% INJ 240 MEQ in SYRINGE/BAG 1 EA IV ONE (13:00)
[2017-05-12] MEDS: PANTOPRAZOLE SODIUM 40 MG VIAL IVP SCH (21:02)
[2017-05-13] VITALS (17 sets, daily range): BP systolic 118–153; BP diastolic 60–73; PULSE 74–93; RESP 22; TEMP 97.5–99.9; O2SAT 95–100
[2017-05-13] MEDS: fentaNYL DRIP 250 ML IV PRN ×3 (00:19→20:14)
[2017-05-13] MEDS: NOREPINEPHRINE INJ 4 MG in SODIUM CHLOR 0.9% 250 ML INJ 246 ML IV PRN ×3 (01:13→21:12)
[2017-05-13] MEDS ORDERED: SODIUM CHLORIDE 23.4% INJ 240 MEQ in SYRINGE/BAG 1 EA IV ONE ×2 (01:15→21:00)
[2017-05-13] MEDS: PROPOFOL 1000 MG/100 ML IV PRN ×8 (02:16→23:13)
[2017-05-13] MEDS: CHLORHEXIDINE GLUCONATE 2 % 1 PACK (2 CLOTHS) TOP SCH (04:00)
[2017-05-13 04:36] LABS: BLOOD GAS BASE EXCESS -7.3 mmol/L (-2-2); BLOOD GAS CARBOXYHEMOGLOBIN 1.4 % (0-4); BLOOD GAS HCO3 17 mmol/L (22-26); BLOOD GAS METHEMOGLOBIN 0.9 % (0-2); BLOOD GAS O2 HGB SATURATION 96 % (90-100); BLOOD GAS OXYGEN CONTENT 13.8 Vol % (12.0-20.0); BLOOD GAS PCO2 31 mmHg (38-42); BLOOD GAS PO2 107 mmHg (61-120); BLOOD GAS TOTAL HGB 10.1 G/DL (12.0-16.0); CRITICAL VALUE NO; OXYGEN DEVICE VENTILATOR; TEMP CORR TO 98.6
[2017-05-13 04:37] LABS: DRAW SITE ART LINE; FIO2 35 %; STAT NO; VENT SETTINGS PRVC/AC
[2017-05-13] MEDS: SODIUM CHLOR 0.9% 1000 ML INJ 1,000 ML IV SCH (05:42)
--- NOTE | 2017-05-13 06:08 | RADRPT ---
EXAM DATE/TIME: 05/13/2017 04:45 [facility] COMPARISON: CT ABDOMEN & PELVIS W CONTRAST, May 09, 2017, 18:10. CHEST SINGLE AP, May 12, 2017, 5:41 . INDICATIONS : Short of breath. MEDICAL HISTORY : None. SURGICAL HISTORY : None. ENCOUNTER: Subsequent ACUITY: 4 - 6 days PAIN SCORE: 0/10 LOCATION: Bilateral chest FINDINGS: Stable ETT and suction type NGT. Small bilateral pleural effusions and associated lower lobe airspace disease. Cardiomediastinal contours are stable. Remainder of exam is unchanged. CONCLUSION: 1. Stable small bilateral pleural effusions and associated by basilar airspace disease. 2. No significant interval change. Kevon Burns MD on May 13, 2017 at 6:04 Board Certified Radiologist. This report was verified electronically.
[2017-05-13 06:18] LABS: AUTOMATED NEUTROPHIL # 3.7 TH/MM3 (1.8-7.7); BASOPHIL % 0.5 % (0.0-2.0); EOSINOPHIL # 0.2 TH/MM3 (0-0.4); HEMATOCRIT 30.7 % (39.0-51.0); HEMO FLAGS DIFF FINAL; LYMPH % 19.3 % (9.0-44.0); LYMPHOCYTE # 1.1 TH/MM3 (1.0-4.8); MEAN CELL VOLUME 94.6 FL (80.0-100.0); MEAN CORPUSCULAR HEMOGLOBIN 32.5 PG (27.0-34.0); MEAN CORPUSCULAR HGB CONC 34.4 % (32.0-36.0); MONO % 10.5 % (0.0-8.0); NEUT % 65.7 % (16.0-70.0); PLATELET COUNT 191 TH/MM3 (150-450); RED BLOOD COUNT 3.25 MIL/MM3 (4.50-5.90); RED CELL DISTRIBUTION WIDTH 14.2 % (11.6-17.2); WHITE BLOOD COUNT 5.7 TH/MM3 (4.0-11.0)
[2017-05-13 07:12] LABS: ALKALINE PHOSPHATASE 65 U/L (45-117); ALT (GPT) 13 U/L (12-78); ANION GAP 8 MEQ/L (5-15); AST (GOT) 26 U/L (15-37); BLOOD UREA NITROGEN 5 MG/DL (7-18); CHLORIDE 135 MEQ/L (98-107); GLOMERULAR FILTRATION RATE 101 ML/MIN (>89); POTASSIUM 3.2 MEQ/L (3.5-5.1); TOTAL BILIRUBIN ADULT 0.5 MG/DL (0.2-1.0)
[2017-05-13 07:23] LABS: SODIUM (NA) 162 MEQ/L (136-145)
[2017-05-13] MEDS: MIDAZOLAM 100 MG/100 ML INJ 100 ML IV PRN ×2 (07:27→17:26)
[2017-05-13] MEDS: POTASSIUM CHLOR 40 MEQ PREMIX 100 ML IV PRN ×3 (07:43→22:21)
[2017-05-13] MEDS ORDERED: BISACODYL 10 MG SUPP RECTAL ONE (08:00)
[2017-05-13] MEDS: CHLORHEXIDINE 0.12% (ORAL KIT) 15 ML CUP MT SCH ×2 (08:00→20:14)
[2017-05-13] MEDS: BACITRACIN TOP OINT 15 GM TUBE TOP SCH ×2 (09:00→21:00)
[2017-05-13] MEDS: levETIRAcetam INJ 500 MG in SODIUM CHLORIDE 0.9% INJ 100 ML IV SCH ×2 (09:20→20:14)
[2017-05-13] MEDS: DOCUSATE SODIUM 100 MG/10 ML UDC PO SCH ×2 (09:20→20:14)
[2017-05-13] MEDS: LACTULOSE SYRUP 20 GM/30 ML CUP PO SCH (09:20)
[2017-05-13] MEDS: 3% SALINE INJ 500 ML IV SCH (11:17)
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
[2017-05-13] MEDS: PANTOPRAZOLE SODIUM 40 MG VIAL IVP SCH (20:14)
[2017-05-13] MEDS ORDERED: FLEC100T PO (20:55)
[2017-05-14] VITALS (16 sets, daily range): BP systolic 122–155; BP diastolic 54–72; PULSE 78–96; RESP 22–24; TEMP 98.9–101.4; O2SAT 93–99
[2017-05-14] MEDS: PROPOFOL 1000 MG/100 ML IV PRN ×8 (01:50→23:51)
[2017-05-14] MEDS: ACETAMINOPHEN 650 MG/20.3 ML UDC PO PRN (02:51)
[2017-05-14] MEDS: 3% SALINE INJ 500 ML IV SCH ×2 (03:00→19:56)
[2017-05-14 03:05] LABS: AUTOMATED NEUTROPHIL # 6.3 TH/MM3 (1.8-7.7); BASOPHIL % 0.5 % (0.0-2.0); EOSINOPHIL # 0.1 TH/MM3 (0-0.4); EOSINOPHIL % 1.2 % (0.0-4.0); HEMATOCRIT 33.5 % (39.0-51.0); HEMO FLAGS DIFF FINAL; LYMPH % 11.1 % (9.0-44.0); LYMPHOCYTE # 0.9 TH/MM3 (1.0-4.8); MEAN CELL VOLUME 95.2 FL (80.0-100.0); MEAN CORPUSCULAR HEMOGLOBIN 31.7 PG (27.0-34.0); MEAN CORPUSCULAR HGB CONC 33.3 % (32.0-36.0); NEUT % 76.2 % (16.0-70.0); PLATELET COUNT 234 TH/MM3 (150-450); RED BLOOD COUNT 3.52 MIL/MM3 (4.50-5.90); RED CELL DISTRIBUTION WIDTH 14.3 % (11.6-17.2); WHITE BLOOD COUNT 8.3 TH/MM3 (4.0-11.0)
[2017-05-14] MEDS: CHLORHEXIDINE GLUCONATE 2 % 1 PACK (2 CLOTHS) TOP SCH ×2 (03:21→23:51)
[2017-05-14 03:26] LABS: ALKALINE PHOSPHATASE 86 U/L (45-117); ALT (GPT) 13 U/L (12-78); ANION GAP 6 MEQ/L (5-15); AST (GOT) 31 U/L (15-37); BICARBONATE 21.1 MEQ/L (21.0-32.0); BLOOD UREA NITROGEN 7 MG/DL (7-18); CHLORIDE 136 MEQ/L (98-107); GLOMERULAR FILTRATION RATE 99 ML/MIN (>89); POTASSIUM 3.7 MEQ/L (3.5-5.1); TOTAL BILIRUBIN ADULT 0.4 MG/DL (0.2-1.0)
[2017-05-14] MEDS: MIDAZOLAM 100 MG/100 ML INJ 100 ML IV PRN ×3 (03:27→19:55)
[2017-05-14 03:28] LABS: BLOOD GAS BASE EXCESS -5.6 mmol/L (-2-2); BLOOD GAS CARBOXYHEMOGLOBIN 1.3 % (0-4); BLOOD GAS HCO3 20 mmol/L (22-26); BLOOD GAS METHEMOGLOBIN 0.9 % (0-2); BLOOD GAS O2 HGB SATURATION 92 % (90-100); BLOOD GAS OXYGEN CONTENT 14.5 Vol % (12.0-20.0); BLOOD GAS PCO2 40 mmHg (38-42); BLOOD GAS PO2 77 mmHg (61-120); BLOOD GAS TOTAL HGB 11.1 G/DL (12.0-16.0); CRITICAL VALUE NO; OXYGEN DEVICE VENTILATOR; VENT SETTINGS PRVC/AC
[2017-05-14 03:28] LABS: SODIUM (NA) 163 MEQ/L (136-145)
[2017-05-14 03:29] LABS: DRAW SITE ART LINE; STAT NO; TEMP CORR TO 37
[2017-05-14] MEDS: fentaNYL DRIP 250 ML IV PRN ×3 (04:16→19:56)
[2017-05-14] MEDS ORDERED: NOREPINEPHRINE 4 MG/4 ML AMP ONE (05:52)
--- NOTE | 2017-05-14 06:00 | RADRPT ---
EXAM DATE/TIME: 05/14/2017 05:11 [place] COMPARISON: CHEST SINGLE AP, May 13, 2017, 4:45. INDICATIONS : Shortness of breath. MEDICAL HISTORY : None. SURGICAL HISTORY : None. ENCOUNTER: Subsequent ACUITY: 4 - 6 days PAIN SCORE: Non-responsive. LOCATION: Bilateral chest FINDINGS: Stable ETT and section type nasogastric catheter. Stable small bilateral pleural effusions and associ ated mild lower lobe airspace disease. Cardiomediastinal contours are stable. Remainder of the exam i s unchanged. CONCLUSION: 1. Stable small bilateral pleural effusions and associated bibasilar airspace disease. 2. No significant interval change. Kevon Burns MD on May 14, 2017 at 5:57 Board Certified Radiologist. This report was verified electronically.
[2017-05-14] MEDS ORDERED: SODIUM CHLOR 0.9% 1000 ML INJ 1,000 ML IV SCH (07:00)
[2017-05-14] MEDS: CHLORHEXIDINE 0.12% (ORAL KIT) 15 ML CUP MT SCH ×2 (08:00→20:59)
[2017-05-14] MEDS: DOCUSATE SODIUM 100 MG/10 ML UDC PO SCH ×2 (08:24→19:55)
[2017-05-14] MEDS: LACTULOSE SYRUP 20 GM/30 ML CUP PO SCH (08:24)
[2017-05-14] MEDS: levETIRAcetam INJ 500 MG in SODIUM CHLORIDE 0.9% INJ 100 ML IV SCH ×2 (08:24→19:55)
[2017-05-14] MEDS: BACITRACIN TOP OINT 15 GM TUBE TOP SCH ×2 (08:24→20:59)
[2017-05-14] MEDS ORDERED: ASPI81CH37 CHEW (08:31)
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
[2017-05-14] MEDS: NOREPINEPHRINE INJ 4 MG in SODIUM CHLOR 0.9% 250 ML INJ 246 ML IV PRN ×2 (09:14→17:14)
[2017-05-14] MEDS ORDERED: SODIUM CHLOR 0.9% 1000 ML INJ 1,000 ML IV ONE (10:15)
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
[2017-05-14] MEDS: PANTOPRAZOLE SODIUM 40 MG VIAL IVP SCH (19:56)
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
[2017-05-15] VITALS (19 sets, daily range): BP systolic 131–161; BP diastolic 59–69; PULSE 79–101; RESP 24; TEMP 99.4–100.6; O2SAT 93–96
[2017-05-15] MEDS: NOREPINEPHRINE INJ 4 MG in SODIUM CHLOR 0.9% 250 ML INJ 246 ML IV PRN ×2 (02:52→12:31)
[2017-05-15] MEDS: PROPOFOL 1000 MG/100 ML IV PRN ×7 (02:52→21:42)
[2017-05-15 03:54] LABS: AUTOMATED NEUTROPHIL # 4.7 TH/MM3 (1.8-7.7); BASOPHIL % 0.5 % (0.0-2.0); EOSINOPHIL # 0.3 TH/MM3 (0-0.4); EOSINOPHIL % 4.2 % (0.0-4.0); HEMATOCRIT 29.9 % (39.0-51.0); HEMO FLAGS DIFF FINAL; LYMPH % 15.9 % (9.0-44.0); LYMPHOCYTE # 1.1 TH/MM3 (1.0-4.8); MEAN CELL VOLUME 95.1 FL (80.0-100.0); MEAN CORPUSCULAR HEMOGLOBIN 32.4 PG (27.0-34.0); MEAN CORPUSCULAR HGB CONC 34.1 % (32.0-36.0); MONO % 14.6 % (0.0-8.0); NEUT % 64.8 % (16.0-70.0); PLATELET COUNT 211 TH/MM3 (150-450); RED BLOOD COUNT 3.15 MIL/MM3 (4.50-5.90); RED CELL DISTRIBUTION WIDTH 14.6 % (11.6-17.2); WHITE BLOOD COUNT 7.2 TH/MM3 (4.0-11.0)
[2017-05-15] MEDS: MIDAZOLAM 100 MG/100 ML INJ 100 ML IV PRN ×2 (04:07→15:39)
[2017-05-15] MEDS: fentaNYL DRIP 250 ML IV PRN ×3 (04:08→21:42)
[2017-05-15 04:14] LABS: ALKALINE PHOSPHATASE 82 U/L (45-117); ALT (GPT) 13 U/L (12-78); ANION GAP 5 MEQ/L (5-15); AST (GOT) 25 U/L (15-37); BICARBONATE 23.6 MEQ/L (21.0-32.0); BLOOD UREA NITROGEN 7 MG/DL (7-18); CHLORIDE 133 MEQ/L (98-107); GLOMERULAR FILTRATION RATE 116 ML/MIN (>89); POTASSIUM 3.1 MEQ/L (3.5-5.1); TOTAL BILIRUBIN ADULT 0.3 MG/DL (0.2-1.0)
[2017-05-15 04:23] LABS: SODIUM (NA) 162 MEQ/L (136-145)
[2017-05-15] MEDS: POTASSIUM CHLOR 40 MEQ PREMIX 100 ML IV PRN ×2 (04:27→06:14)
--- NOTE | 2017-05-15 04:55 | RADRPT ---
EXAM DATE/TIME: 05/15/2017 03:59 [place] COMPARISON: CHEST SINGLE AP, May 14, 2017, 5:11. INDICATIONS : Short of breath. MEDICAL HISTORY : None. SURGICAL HISTORY : None. ENCOUNTER: Initial ACUITY: 4 - 6 days PAIN SCORE: Non-responsive. LOCATION: Bilateral chest FINDINGS: Stable ETT, NGT, and left subclavian central line. Lungs are hypoaerated with bilateral lower lung zo ne airspace disease and left greater than right small pleural effusions. Cardiomediastinal contours a re stable. Remainder of exam is unchanged. CONCLUSION: 1. Stable tubes and lines, as above. 2. Stable airspace disease in the lower lung zones and small bilateral pleural effusions. 3. No significant interval change. Kevon Burns MD on May 15, 2017 at 4:51 Board Certified Radiologist. This report was verified electronically.
[2017-05-15] MEDS: BACITRACIN TOP OINT 15 GM TUBE TOP SCH ×2 (09:00→21:00)
[2017-05-15] MEDS: CHLORHEXIDINE 0.12% (ORAL KIT) 15 ML CUP MT SCH ×2 (09:23→20:00)
[2017-05-15] MEDS: DOCUSATE SODIUM 100 MG/10 ML UDC PO SCH ×2 (09:23→21:42)
[2017-05-15] MEDS: LACTULOSE SYRUP 20 GM/30 ML CUP PO SCH (09:23)
[2017-05-15] MEDS: levETIRAcetam INJ 500 MG in SODIUM CHLORIDE 0.9% INJ 100 ML IV SCH ×2 (09:23→21:42)
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
[2017-05-15] MEDS: CISATRACURIUM INJ 100 MG in SODIUM CHLOR 0.9% 250 ML INJ 250 ML IV PRN (11:28)
--- NOTE | 2017-05-15 13:06 | EKG ---
Date Performed: 05/15/2017 Time Performed: 10:54:36 PTAGE: 57 years EKG: Sinus rhythm WITH OCCASIONAL SUPRAVENTRICULAR PREMATURE COMPLEXES LEFT POSTERIOR FASCICULAR BLOCK ST DEVIATION AN D MODERATE T-WAVE ABNORMALITY, CONSIDER ANTEROLATERAL ISCHEMIA ST DEVIATION AND MODERATE T-WAVE ABNOR MALITY, CONSIDER INFERIOR ISCHEMIA ABNORMAL ECG PREVIOUS TRACING : 05/10/2017 16.58 DOCTOR: Tomi Alexander Interpretating Date/Time 05/15/2017 12:58:32
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
[2017-05-15] MEDS: ACETAMINOPHEN 650 MG/20.3 ML UDC PO PRN (17:46)
[2017-05-15 17:52] LABS: BLOOD GAS BASE EXCESS -1.1 mmol/L (-2-2); BLOOD GAS CARBOXYHEMOGLOBIN 1.3 % (0-4); BLOOD GAS HCO3 23 mmol/L (22-26); BLOOD GAS METHEMOGLOBIN 0.9 % (0-2); BLOOD GAS O2 HGB SATURATION 92 % (90-100); BLOOD GAS PCO2 41 mmHg (38-42); BLOOD GAS PO2 78 mmHg (61-120); BLOOD GAS TOTAL HGB 10.7 G/DL (12.0-16.0); CRITICAL VALUE NO; DRAW SITE ART LINE; FIO2 40 %; OXYGEN DEVICE VENTILATOR; TEMP CORR TO 98.6
[2017-05-15 17:53] LABS: STAT YES
[2017-05-15] MEDS: PANTOPRAZOLE SODIUM 40 MG VIAL IVP SCH (21:43)
[2017-05-15] MEDS ORDERED: SODIUM CHLORIDE 23.4% INJ 240 MEQ in SYRINGE/BAG 1 EA IV ONE (23:00)
[2017-05-16] VITALS (21 sets, daily range): BP systolic 146–172; BP diastolic 67–74; PULSE 78–110; RESP 24–32; TEMP 99–101.3; O2SAT 91–100
[2017-05-16] MEDS: MIDAZOLAM 100 MG/100 ML INJ 100 ML IV PRN ×3 (00:35→20:24)
[2017-05-16] MEDS ORDERED: LEVOFLOXACIN 750 MG PREMIX INJ 150 ML IV SCH (01:00)
[2017-05-16] MEDS: CISATRACURIUM INJ 100 MG in SODIUM CHLOR 0.9% 250 ML INJ 250 ML IV PRN ×5 (01:54→22:57)
[2017-05-16] MEDS ORDERED: ceFAZolin 2 GM PREMIX 50 ML IV SCH (02:00)
[2017-05-16] MEDS: CHLORHEXIDINE GLUCONATE 2 % 1 PACK (2 CLOTHS) TOP SCH (03:21)
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
[2017-05-16 05:27] LABS: AUTOMATED NEUTROPHIL # 6.4 TH/MM3 (1.8-7.7); BASOPHIL % 0.5 % (0.0-2.0); EOSINOPHIL # 0.1 TH/MM3 (0-0.4); EOSINOPHIL % 1.5 % (0.0-4.0); HEMATOCRIT 32.7 % (39.0-51.0); LYMPH % 12.7 % (9.0-44.0); LYMPHOCYTE # 1.2 TH/MM3 (1.0-4.8); MEAN CELL VOLUME 94.7 FL (80.0-100.0); MEAN CORPUSCULAR HEMOGLOBIN 31.3 PG (27.0-34.0); MONO % 16.6 % (0.0-8.0); NEUT % 68.7 % (16.0-70.0); PLATELET COUNT 237 TH/MM3 (150-450); RED BLOOD COUNT 3.45 MIL/MM3 (4.50-5.90); RED CELL DISTRIBUTION WIDTH 14.5 % (11.6-17.2); WHITE BLOOD COUNT 9.3 TH/MM3 (4.0-11.0)
[2017-05-16 05:28] LABS: HEMO FLAGS AUTO DIFF
[2017-05-16 05:32] LABS: BLOOD GAS BASE EXCESS -0.1 mmol/L (-2-2); BLOOD GAS CARBOXYHEMOGLOBIN 1.2 % (0-4); BLOOD GAS HCO3 25 mmol/L (22-26); BLOOD GAS METHEMOGLOBIN 0.8 % (0-2); BLOOD GAS O2 HGB SATURATION 87 % (90-100); BLOOD GAS OXYGEN CONTENT 13.4 Vol % (12.0-20.0); BLOOD GAS PCO2 50 mmHg (38-42); BLOOD GAS PO2 61 mmHg (61-120); TEMP CORR TO 98.6
[2017-05-16 05:33] LABS: CRITICAL VALUE YES; DRAW SITE ART LINE; FIO2 70 %; OXYGEN DEVICE VENTILATOR; STAT YES
[2017-05-16 05:35] LABS: VENT SETTINGS 24/600/IT1.0/10PEEP
[2017-05-16 06:00] LABS: ALKALINE PHOSPHATASE 102 U/L (45-117); ALT (GPT) 15 U/L (12-78); ANION GAP 5 MEQ/L (5-15); AST (GOT) 28 U/L (15-37); BICARBONATE 26.9 MEQ/L (21.0-32.0); BLOOD UREA NITROGEN 14 MG/DL (7-18); CHLORIDE 126 MEQ/L (98-107); GLOMERULAR FILTRATION RATE 147 ML/MIN (>89); POTASSIUM 3.5 MEQ/L (3.5-5.1); TOTAL BILIRUBIN ADULT 0.4 MG/DL (0.2-1.0)
[2017-05-16 06:03] LABS: SODIUM (NA) 158 MEQ/L (136-145)
--- NOTE | 2017-05-16 06:27 | RADRPT ---
EXAM DATE/TIME: 05/16/2017 06:00 [place] COMPARISON: CT BRAIN W/O CONTRAST, May 10, 2017, 12:09. INDICATIONS : Intracranial hemorrhage. RADIATION DOSE: 63.52 CTDIvol (mGy) MEDICAL HISTORY : Non-responsive. SURGICAL HISTORY : Craniotomy. ENCOUNTER: Subsequent ACUITY: 1 week PAIN SCALE: Non-responsive LOCATION: cranial TECHNIQUE: Multiple contiguous axial images were obtained of the head. Using automated exposure control and adjustment of the mA and/or kV according to patient size, radiation dose was kept as low as reasonably achievable to obtain optimal diagnostic quality images. DICOM format image data is av ailable electronically for review and comparison. FINDINGS: Interval evolution of diffuse left frontoparietal parenchymal hemorrhages with progressive surroundin g edema. There is less prominent right frontal high convexity parenchymal hemorrhage. Evolving extens chrissy subarachnoid hemorrhage and subdural hemorrhage particularly along the right tentorium. No interc urrent hemorrhage. No significant midline shift. The basilar cisterns remain mildly effaced but paten t. There is a right frontal ventriculostomy catheter in stable position. Lateral ventricles are stabl e in size and midline. There is a stable right frontal pressure monitor in place. Brainstem and cereb ellum are intact. Remainder of exam is unchanged. CONCLUSION: 1. Evolving diffuse scattered primarily left-sided parenchymal hemorrhages. 2. Evolving subdural and subarachnoid blood products. 3. Stable right frontal ventriculostomy and pressure monitor in place with stable ventricle size. 4. No intercurrent hemorrhage or progressive herniation. Kevon Burns MD on May 16, 2017 at 6:16 Board Certified Radiologist. This report was verified electronically.
[2017-05-16] MEDS: ACETAMINOPHEN 1000 MG/100 ML VIAL IV PRN ×2 (06:34→10:09)
[2017-05-16 07:00] LABS: BANDS 38 % (0-6); EOSINOPHILS 1 % (0-4); METAMYELOCYTES 1 % (0-1); MYELOCYTES 2 % (0-0); NEUTROPHIL # MANUAL DIFF 7.9 TH/MM3 (1.8-7.7); POLYS (SEG NEUTROPHILS) 44 % (16-70); SCAN/DIFF FINAL DIFF MANUAL; WBC DIFF SAMPLE 100
[2017-05-16] MEDS ORDERED: SODIUM CHLORIDE 23.4% INJ 240 MEQ in SYRINGE/BAG 1 EA IV ONE (07:15)
[2017-05-16] MEDS: PROPOFOL 1000 MG/100 ML IV PRN ×6 (07:36→23:00)
[2017-05-16] MEDS: CHLORHEXIDINE 0.12% (ORAL KIT) 15 ML CUP MT SCH ×2 (08:00→20:00)
[2017-05-16] MEDS: NOREPINEPHRINE INJ 4 MG in SODIUM CHLOR 0.9% 250 ML INJ 246 ML IV PRN ×2 (08:35→16:09)
[2017-05-16] MEDS: BACITRACIN TOP OINT 15 GM TUBE TOP SCH ×2 (09:00→21:00)
[2017-05-16] MEDS: LACTULOSE SYRUP 20 GM/30 ML CUP PO SCH (09:00)
[2017-05-16] MEDS: DOCUSATE SODIUM 100 MG/10 ML UDC PO SCH ×2 (09:55→20:25)
[2017-05-16] MEDS: levETIRAcetam INJ 500 MG in SODIUM CHLORIDE 0.9% INJ 100 ML IV SCH ×2 (09:55→20:24)
[2017-05-16] MEDS: VANCOMYCIN INJ 1,000 MG in SODIUM CHLOR 0.9% 250 ML INJ 250 ML IV SCH ×2 (09:56→22:58)
[2017-05-16] MEDS ORDERED: BUMETANIDE INJ 1 MG/4 ML VIAL IV PUSH ONE (10:00)
[2017-05-16] MEDS ORDERED: POTASSIUM CHLORIDE 25 MEQ EFFERVESCENT TAB PO ONE (10:00)
[2017-05-16] MEDS: PIPERACIL-TAZO 4.5 GM PREMIX 100 ML IV SCH ×2 (11:24→20:25)
[2017-05-16 12:08] LABS: BLOOD GAS BASE EXCESS 1.8 mmol/L (-2-2); BLOOD GAS CARBOXYHEMOGLOBIN 1.3 % (0-4); BLOOD GAS HCO3 26 mmol/L (22-26); BLOOD GAS METHEMOGLOBIN 0.9 % (0-2); BLOOD GAS O2 HGB SATURATION 93 % (90-100); BLOOD GAS OXYGEN CONTENT 15.5 Vol % (12.0-20.0); BLOOD GAS PCO2 45 mmHg (38-42); BLOOD GAS PO2 77 mmHg (61-120); BLOOD GAS TOTAL HGB 11.8 G/DL (12.0-16.0); TEMP CORR TO 98.6
[2017-05-16 12:09] LABS: CRITICAL VALUE NO; OXYGEN DEVICE VENTILATOR
[2017-05-16 12:10] LABS: DRAW SITE ART LINE; FIO2 70 %; STAT NO
--- NOTE | 2017-05-16 12:26 | ECHRPT ---
Indication: CHEST PAIN- S/P TRAUMA CONCLUSIONS Normal left ventricular size. Wall thickness is normal. The left ventricular systolic function is hyperdynamic with an estimated ejection fraction in the ra nge of 65- 70%. There was limited left ventricular wall motion assessment due to poor endocardial visualization. The aortic valve is not well visualized. The estimated pulmonary arterial pressure is 31 mmHg. The pulmonary valve is not well visualized. The inferior vena cava is dilated. BP: / HR: Rhythm: Sinus MEASUREMENTS (Male / Female) Normal Values Technical Quality:Technically difficult study 2D ECHO LV Diastolic Diameter PLAX 4.4 cm 4.2 - 5.9 / 3.9 - 5.3 cm LV Systolic Diameter PLAX 2.8 cm IVS Diastolic Thickness 1.1 cm 0.6 - 1.0 / 0.6 - 0.9 cm LVPW Diastolic Thickness 0.8 cm 0.6 - 1.0 / 0.6 - 0.9 cm LV Relative Wall Thickness 0.4 RV Internal Dim ED PLAX 2.9 cm DOPPLER Mitral E Point Velocity 79.5 cm/s Mitral A Point Velocity 53.3 cm/s Mitral E to A Ratio 1.5 TR Peak Velocity 238.0 cm/s TR Peak Gradient 22.7 mmHg FINDINGS LEFT VENTRICLE Normal left ventricular size. Wall thickness is normal. The left ventricular systolic function is hyperdynamic with an estimated ejection fraction in the ra nge of 65- 70%. There was limited left ventricular wall motion assessment due to poor endocardial visualization. RIGHT VENTRICLE Normal right ventricular size and systolic function. LEFT ATRIUM The left atrial size is normal. RIGHT ATRIUM The right atrial size is normal. ATRIAL SEPTUM Normal atrial septal thickness without atrial level shunting by limited color doppler interrogation. AORTA The aortic root and proximal ascending aorta are normal in size on limited imaging. MITRAL VALVE Structurally normal mitral valve. No mitral valve stenosis or regurgitation. AORTIC VALVE The aortic valve is not well visualized. TRICUSPID VALVE The estimated pulmonary arterial pressure is 31 mmHg. PULMONARY VALVE The pulmonary valve is not well visualized. VESSELS The inferior vena cava is dilated. PERICARDIUM No pericardial effusion. Tomi Alexander MD (Electronically Signed) Final Date:16 May 2017 12:26
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
[2017-05-16] MEDS: fentaNYL DRIP 250 ML IV PRN ×2 (14:07→20:23)
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
[2017-05-16 15:00] LABS: BLOOD GAS BASE EXCESS 1.9 mmol/L (-2-2); BLOOD GAS CARBOXYHEMOGLOBIN 1.4 % (0-4); BLOOD GAS HCO3 26 mmol/L (22-26); BLOOD GAS METHEMOGLOBIN 0.8 % (0-2); BLOOD GAS O2 HGB SATURATION 95 % (90-100); BLOOD GAS OXYGEN CONTENT 14.9 Vol % (12.0-20.0); BLOOD GAS PCO2 37 mmHg (38-42); BLOOD GAS PO2 90 mmHg (61-120); BLOOD GAS TOTAL HGB 11.1 G/DL (12.0-16.0); TEMP CORR TO 98.6
[2017-05-16 15:01] LABS: CRITICAL VALUE NO; OXYGEN DEVICE VENTILATOR
[2017-05-16 15:02] LABS: DRAW SITE ART LINE; FIO2 70 %; STAT NO
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
[2017-05-16 16:50] LABS: BLOOD, URINE NEG (NEG); GLUCOSE,URINE NEG (NEG); KETONE, URINE NEG (NEG); MUCUS URINE FEW /lpf (OCC); NITRITE,URINE NEG (NEG); PH, URINE 5.5 (5.0-8.5); URINE COLOR YELLOW (YELLW/STRAW)
[2017-05-16 17:03] LABS: COMMENT (UR) CATH-CULT NOT IND; CULTURE IF INDICATED CATH CULTURE NOT IND
[2017-05-16] MEDS: PANTOPRAZOLE SODIUM 40 MG VIAL IVP SCH (20:25)
[2017-05-16] MEDS: SODIUM CHLORIDE 0.9% FLUSH 10 ML FLUSH IV FLUSH PRN (20:25)
[2017-05-17] VITALS (20 sets, daily range): BP systolic 130–157; BP diastolic 54–74; PULSE 73–95; RESP 25–32; TEMP 97.2–98.2; O2SAT 93–100
[2017-05-17 01:20] LABS: BLOOD GAS BASE EXCESS 1.2 mmol/L (-2-2); BLOOD GAS CARBOXYHEMOGLOBIN 1.4 % (0-4); BLOOD GAS HCO3 24 mmol/L (22-26); BLOOD GAS O2 HGB SATURATION 96 % (90-100); BLOOD GAS OXYGEN CONTENT 13.8 Vol % (12.0-20.0); BLOOD GAS PCO2 29 mmHg (38-42); BLOOD GAS PO2 104 mmHg (61-120); BLOOD GAS TOTAL HGB 10.1 G/DL (12.0-16.0); OXYGEN DEVICE VENTILATOR; TEMP CORR TO 98.6
[2017-05-17 01:21] LABS: DRAW SITE ALINE; FIO2 60 %; STAT NO; ULNAR PULSE PRESENT; VENT SETTINGS PRVC
[2017-05-17] MEDS: POTASSIUM CHLOR 40 MEQ PREMIX 100 ML IV PRN ×4 (01:24→22:29)
[2017-05-17] MEDS ORDERED: SODIUM CHLORIDE 23.4% INJ 240 MEQ in SYRINGE/BAG 1 EA IV ONE (02:00)
[2017-05-17] MEDS: PROPOFOL 1000 MG/100 ML IV PRN ×9 (02:09→21:11)
[2017-05-17] MEDS: NOREPINEPHRINE INJ 4 MG in SODIUM CHLOR 0.9% 250 ML INJ 246 ML IV PRN ×3 (02:11→17:34)
[2017-05-17] MEDS: CISATRACURIUM INJ 100 MG in SODIUM CHLOR 0.9% 250 ML INJ 250 ML IV PRN ×5 (03:21→22:21)
[2017-05-17] MEDS: CHLORHEXIDINE GLUCONATE 2 % 1 PACK (2 CLOTHS) TOP SCH (04:00)
[2017-05-17 04:53] LABS: AUTOMATED NEUTROPHIL # 7.4 TH/MM3 (1.8-7.7); BASOPHIL # 0.1 TH/MM3 (0-0.2); BASOPHIL % 0.5 % (0.0-2.0); EOSINOPHIL # 0.2 TH/MM3 (0-0.4); EOSINOPHIL % 2.1 % (0.0-4.0); HEMATOCRIT 28.6 % (39.0-51.0); HEMO FLAGS DIFF FINAL; LYMPH % 12.7 % (9.0-44.0); LYMPHOCYTE # 1.2 TH/MM3 (1.0-4.8); MEAN CELL VOLUME 93.7 FL (80.0-100.0); MEAN CORPUSCULAR HEMOGLOBIN 31.8 PG (27.0-34.0); MEAN CORPUSCULAR HGB CONC 33.9 % (32.0-36.0); MONO % 9.8 % (0.0-8.0); NEUT % 74.9 % (16.0-70.0); PLATELET COUNT 253 TH/MM3 (150-450); RED BLOOD COUNT 3.06 MIL/MM3 (4.50-5.90); WHITE BLOOD COUNT 9.8 TH/MM3 (4.0-11.0)
[2017-05-17 05:15] LABS: ALKALINE PHOSPHATASE 85 U/L (45-117); ALT (GPT) 13 U/L (12-78); ANION GAP 8 MEQ/L (5-15); AST (GOT) 21 U/L (15-37); BLOOD UREA NITROGEN 19 MG/DL (7-18); CHLORIDE 130 MEQ/L (98-107); GLOMERULAR FILTRATION RATE 153 ML/MIN (>89); TOTAL BILIRUBIN ADULT 0.6 MG/DL (0.2-1.0)
[2017-05-17 05:17] LABS: POTASSIUM 2.8 MEQ/L (3.5-5.1); SODIUM (NA) 164 MEQ/L (136-145)
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
[2017-05-17] MEDS: MIDAZOLAM 100 MG/100 ML INJ 100 ML IV PRN ×2 (05:51→10:14)
[2017-05-17] MEDS: fentaNYL DRIP 250 ML IV PRN ×3 (05:51→22:00)
[2017-05-17] MEDS: PIPERACIL-TAZO 4.5 GM PREMIX 100 ML IV SCH ×2 (06:50→11:28)
[2017-05-17] MEDS: 3% SALINE INJ 500 ML IV SCH ×2 (06:50→21:59)
[2017-05-17] MEDS: levETIRAcetam INJ 500 MG in SODIUM CHLORIDE 0.9% INJ 100 ML IV SCH ×2 (07:57→20:24)
[2017-05-17] MEDS: CHLORHEXIDINE 0.12% (ORAL KIT) 15 ML CUP MT SCH ×2 (08:00→20:00)
[2017-05-17] MEDS: BACITRACIN TOP OINT 15 GM TUBE TOP SCH ×2 (09:00→20:48)
[2017-05-17] MEDS: LACTULOSE SYRUP 20 GM/30 ML CUP PO SCH (09:00)
[2017-05-17] MEDS: DOCUSATE SODIUM 100 MG/10 ML UDC PO SCH ×2 (09:00→20:24)
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
[2017-05-17] MEDS: VANCOMYCIN INJ 1,000 MG in SODIUM CHLOR 0.9% 250 ML INJ 250 ML IV SCH (10:15)
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
[2017-05-17] MEDS: PIPERACIL-TAZO 3.375 GM PREMIX 50 ML IV SCH ×2 (17:36→23:34)
[2017-05-17] MEDS: PANTOPRAZOLE SODIUM 40 MG VIAL IVP SCH (20:24)
[2017-05-17] MEDS: RESP: ALBUTEROL 2.5 MG/3 ML NEB (PRN) NEB (20:41)
[2017-05-18] VITALS (19 sets, daily range): BP systolic 129–161; BP diastolic 60–67; PULSE 77–97; RESP 26–30; TEMP 97.7–100.2; O2SAT 93–100
[2017-05-18] MEDS: NOREPINEPHRINE INJ 4 MG in SODIUM CHLOR 0.9% 250 ML INJ 246 ML IV PRN ×4 (02:00→21:00)
[2017-05-18] MEDS: PROPOFOL 1000 MG/100 ML IV PRN ×7 (03:00→22:43)
[2017-05-18 03:02] LABS: BLOOD GAS BASE EXCESS -0.3 mmol/L (-2-2); BLOOD GAS CARBOXYHEMOGLOBIN 1.3 % (0-4); BLOOD GAS HCO3 23 mmol/L (22-26); BLOOD GAS METHEMOGLOBIN 0.8 % (0-2); BLOOD GAS O2 HGB SATURATION 93 % (90-100); BLOOD GAS OXYGEN CONTENT 13.3 Vol % (12.0-20.0); BLOOD GAS PCO2 31 mmHg (38-42); BLOOD GAS PO2 73 mmHg (61-120); BLOOD GAS TOTAL HGB 10.1 G/DL (12.0-16.0); TEMP CORR TO 98.6
[2017-05-18 03:03] LABS: CRITICAL VALUE NO; DRAW SITE ALINE; FIO2 50 %; OXYGEN DEVICE VENTILATOR; STAT NO; ULNAR PULSE PRESENT; VENT SETTINGS PRVC/30/650/0.9/+10
[2017-05-18] MEDS: CISATRACURIUM INJ 100 MG in SODIUM CHLOR 0.9% 250 ML INJ 250 ML IV PRN ×4 (03:30→21:00)
[2017-05-18] MEDS: CHLORHEXIDINE GLUCONATE 2 % 1 PACK (2 CLOTHS) TOP SCH (04:00)
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
[2017-05-18] MEDS: PIPERACIL-TAZO 3.375 GM PREMIX 50 ML IV SCH ×4 (05:06→22:49)
[2017-05-18] MEDS: RESP: ALBUTEROL 2.5 MG/3 ML NEB (PRN) NEB (05:16)
[2017-05-18 05:49] LABS: AUTOMATED NEUTROPHIL # 9.3 TH/MM3 (1.8-7.7); BASOPHIL % 0.3 % (0.0-2.0); EOSINOPHIL # 0.3 TH/MM3 (0-0.4); EOSINOPHIL % 2.4 % (0.0-4.0); HEMATOCRIT 28.6 % (39.0-51.0); LYMPH % 9.8 % (9.0-44.0); LYMPHOCYTE # 1.2 TH/MM3 (1.0-4.8); MEAN CELL VOLUME 92.8 FL (80.0-100.0); MEAN CORPUSCULAR HGB CONC 33.4 % (32.0-36.0); MONO % 8.7 % (0.0-8.0); NEUT % 78.8 % (16.0-70.0); PLATELET COUNT 269 TH/MM3 (150-450); RED BLOOD COUNT 3.09 MIL/MM3 (4.50-5.90); RED CELL DISTRIBUTION WIDTH 14.5 % (11.6-17.2); WHITE BLOOD COUNT 11.9 TH/MM3 (4.0-11.0)
[2017-05-18] MEDS: fentaNYL DRIP 250 ML IV PRN ×4 (06:04→22:43)
[2017-05-18 06:08] LABS: HEMO FLAGS AUTO DIFF
[2017-05-18 06:24] LABS: ALKALINE PHOSPHATASE 98 U/L (45-117); ALT (GPT) 16 U/L (12-78); ANION GAP 5 MEQ/L (5-15); AST (GOT) 23 U/L (15-37); BICARBONATE 25.2 MEQ/L (21.0-32.0); BLOOD UREA NITROGEN 19 MG/DL (7-18); CHLORIDE 129 MEQ/L (98-107); GLOMERULAR FILTRATION RATE 175 ML/MIN (>89); TOTAL BILIRUBIN ADULT 0.6 MG/DL (0.2-1.0)
[2017-05-18 06:29] LABS: SODIUM (NA) 159 MEQ/L (136-145)
[2017-05-18] MEDS: POTASSIUM CHLOR 40 MEQ PREMIX 100 ML IV PRN ×4 (06:43→18:40)
[2017-05-18] MEDS: DOCUSATE SODIUM 100 MG/10 ML UDC PO SCH ×2 (07:59→19:53)
[2017-05-18] MEDS: LACTULOSE SYRUP 20 GM/30 ML CUP PO SCH (07:59)
[2017-05-18] MEDS: CHLORHEXIDINE 0.12% (ORAL KIT) 15 ML CUP MT SCH ×2 (07:59→20:00)
[2017-05-18] MEDS: levETIRAcetam INJ 500 MG in SODIUM CHLORIDE 0.9% INJ 100 ML IV SCH ×2 (08:09→19:52)
[2017-05-18] MEDS: BACITRACIN TOP OINT 15 GM TUBE TOP SCH ×2 (08:10→22:49)
[2017-05-18] MEDS: MIDAZOLAM 100 MG/100 ML INJ 100 ML IV PRN ×3 (09:52→22:43)
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
[2017-05-18 10:10] LABS: BANDS 33 % (0-6); CORRECTED NUCLEATED RBC 1 /100 WBC (0-0); EOSINOPHILS 2 % (0-4); METAMYELOCYTES 1 % (0-1); NEUTROPHIL # MANUAL DIFF 10.8 TH/MM3 (1.8-7.7); PLATELET ESTIMATE SMEAR NORMAL (NORMAL); PLATELET MORPHOLOGY NORMAL (NORMAL); POLYS (SEG NEUTROPHILS) 57 % (16-70); SCAN/DIFF FINAL DIFF MANUAL; WBC DIFF SAMPLE 100
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
[2017-05-18] MEDS: ENOXAPARIN SODIUM 40 MG/0.4 ML SYRINGE SQ SCH (10:53)
[2017-05-18] MEDS ORDERED: DEXTROSE 50% IN WATER 50 ML VIAL(D50) IV PRN (11:00)
[2017-05-18] MEDS ORDERED: METHYLNALTREXONE BROMIDE 12 MG/0.6 ML VIAL SQ ONE (11:00)
[2017-05-18] MEDS ORDERED: BUMETANIDE INJ 1 MG/4 ML VIAL IV PUSH ONE (11:00)
[2017-05-18] MEDS ORDERED: GLUCAGON 1 MG/ML VIAL OTHER PRN (11:00)
[2017-05-18] MEDS ORDERED: POTASSIUM CHLORIDE 25 MEQ EFFERVESCENT TAB PO ONE (11:00)
[2017-05-18] MEDS: INSULIN NovoLIN REGULAR SUPPLEMENTAL SCALE SQ SCH ×3 (11:36→23:59)
[2017-05-18 12:11] LABS: BLOOD GAS CARBOXYHEMOGLOBIN 1.3 % (0-4); BLOOD GAS HCO3 23 mmol/L (22-26); BLOOD GAS METHEMOGLOBIN 0.7 % (0-2); BLOOD GAS O2 HGB SATURATION 89 % (90-100); BLOOD GAS PCO2 31 mmHg (38-42); BLOOD GAS PO2 61 mmHg (61-120); BLOOD GAS TOTAL HGB 11.9 G/DL (12.0-16.0); TEMP CORR TO 98.6
[2017-05-18 12:12] LABS: CRITICAL VALUE YES; OXYGEN DEVICE VENTILATOR
[2017-05-18 12:13] LABS: DRAW SITE ART LINE; FIO2 50 %; STAT NO; VENT SETTINGS PRVC/AC
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
[2017-05-18] MEDS: 3% SALINE INJ 500 ML IV SCH (13:30)
[2017-05-18 14:07] LABS: CALCIUM-PROTEIN CORRECTED 9.1 MG/DL (8.5-10.1)
[2017-05-18] MEDS: ARTIFICIAL TEARS OPTH SOLN 15 ML BTL EACH EYE SCH ×2 (15:57→22:49)
[2017-05-18] MEDS ORDERED: RESP: ALBUTEROL 2.5 MG/IPRATROPIUM 0.5 MG NEB (SCH) NEB (16:00)
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
[2017-05-18] MEDS: PANTOPRAZOLE SODIUM 40 MG VIAL IVP SCH (19:52)
[2017-05-18] MEDS: SENNOSIDES SYRUP 8.8 MG/5 ML CUP PO SCH (19:53)
[2017-05-18] MEDS: POLYETHYLENE GLYCOL 17 GM PKG PO SCH (19:53)
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
[2017-05-18] MEDS: RESP: SODIUM CHLORIDE 3% 4 ML NEB NEB SCH (21:47)
[2017-05-18] MEDS: RESP: ALBUTEROL 2.5 MG/IPRATROPIUM 0.5 MG NEB (SCH) NEB (21:48)
[2017-05-18] MEDS ORDERED: PENTOBARBITAL IV PRN (23:30)
[2017-05-18] MEDS ORDERED: SODIUM CHLORID 0.9% IV PRN (23:30)
[2017-05-19] VITALS (19 sets, daily range): BP systolic 114–165; BP diastolic 52–86; PULSE 81–99; RESP 28; TEMP 97.1–99.6; O2SAT 95–100
[2017-05-19] MEDS: RESP: SODIUM CHLORIDE 3% 4 ML NEB NEB SCH ×7 (00:59→23:26)
[2017-05-19] MEDS: RESP: ALBUTEROL 2.5 MG/IPRATROPIUM 0.5 MG NEB (SCH) NEB ×7 (01:00→23:26)
[2017-05-19] MEDS: PROPOFOL 1000 MG/100 ML IV PRN ×8 (02:00→20:49)
[2017-05-19] MEDS: CISATRACURIUM INJ 100 MG in SODIUM CHLOR 0.9% 250 ML INJ 250 ML IV PRN ×6 (03:00→20:49)
[2017-05-19] MEDS: NOREPINEPHRINE INJ 4 MG in SODIUM CHLOR 0.9% 250 ML INJ 246 ML IV PRN ×3 (03:00→18:35)
[2017-05-19] MEDS: CHLORHEXIDINE GLUCONATE 2 % 1 PACK (2 CLOTHS) TOP SCH (04:00)
[2017-05-19] MEDS: fentaNYL DRIP 250 ML IV PRN ×3 (04:40→17:26)
[2017-05-19] MEDS: MIDAZOLAM 100 MG/100 ML INJ 100 ML IV PRN ×3 (05:32→17:26)
[2017-05-19 05:36] LABS: AUTOMATED NEUTROPHIL # 10.3 TH/MM3 (1.8-7.7); BASOPHIL # 0.1 TH/MM3 (0-0.2); BASOPHIL % 0.4 % (0.0-2.0); EOSINOPHIL # 0.3 TH/MM3 (0-0.4); EOSINOPHIL % 2.6 % (0.0-4.0); HEMATOCRIT 29.6 % (39.0-51.0); LYMPH % 10.6 % (9.0-44.0); LYMPHOCYTE # 1.4 TH/MM3 (1.0-4.8); MEAN CELL VOLUME 93.2 FL (80.0-100.0); MEAN CORPUSCULAR HEMOGLOBIN 31.5 PG (27.0-34.0); MEAN CORPUSCULAR HGB CONC 33.8 % (32.0-36.0); MONO % 6.7 % (0.0-8.0); NEUT % 79.7 % (16.0-70.0); PLATELET COUNT 291 TH/MM3 (150-450); RED BLOOD COUNT 3.18 MIL/MM3 (4.50-5.90); RED CELL DISTRIBUTION WIDTH 14.6 % (11.6-17.2)
[2017-05-19 05:46] LABS: BLOOD GAS BASE EXCESS -0.8 mmol/L (-2-2); BLOOD GAS CARBOXYHEMOGLOBIN 1.2 % (0-4); BLOOD GAS HCO3 22 mmol/L (22-26); BLOOD GAS METHEMOGLOBIN 0.9 % (0-2); BLOOD GAS O2 HGB SATURATION 87 % (90-100); BLOOD GAS OXYGEN CONTENT 12.4 Vol % (12.0-20.0); BLOOD GAS PCO2 31 mmHg (38-42); BLOOD GAS PO2 57 mmHg (61-120); BLOOD GAS TOTAL HGB 10.1 G/DL (12.0-16.0); CRITICAL VALUE YES; OXYGEN DEVICE VENTILATOR; TEMP CORR TO 98.6
[2017-05-19 05:47] LABS: DRAW SITE ALINE; FIO2 50 %; STAT NO; ULNAR PULSE PRESENT; VENT SETTINGS PRVC28/650/0.9/+10
[2017-05-19] MEDS: ARTIFICIAL TEARS OPTH SOLN 15 ML BTL EACH EYE SCH ×3 (05:48→20:28)
[2017-05-19] MEDS: 3% SALINE INJ 500 ML IV SCH ×3 (05:48→14:19)
[2017-05-19] MEDS: PIPERACIL-TAZO 3.375 GM PREMIX 50 ML IV SCH ×4 (05:48→23:33)
[2017-05-19 05:50] LABS: HEMO FLAGS AUTO DIFF
[2017-05-19] MEDS: INSULIN NovoLIN REGULAR SUPPLEMENTAL SCALE SQ SCH ×4 (06:00→23:32)
--- NOTE | 2017-05-19 06:07 | RADRPT ---
EXAM DATE/TIME: 05/19/2017 04:30 [facility] COMPARISON: CHEST SINGLE AP, May 18, 2017, 3:56. INDICATIONS : Shortness of breath, possible pulmonary disease. MEDICAL HISTORY : None. SURGICAL HISTORY : None. ENCOUNTER: Initial ACUITY: 2 weeks PAIN SCORE: Non-responsive. LOCATION: Bilateral chest FINDINGS: A single view of the chest demonstrates endotracheal tube in good position. NG enters stomach. Left c entral line tip in left brachiocephalic vein. Bilateral mostly basilar airspace consolidation present with pleural effusions. No pneumothorax. CONCLUSION: 1. Stable bilateral mostly basilar airspace disease and pleural effusions since May 18. Endotra cheal tube, nasogastric tube and left central line unchanged. Santiago Dodd MD on May 19, 2017 at 6:03 Board Certified Radiologist. This report was verified electronically.
[2017-05-19 06:23] LABS: ALKALINE PHOSPHATASE 110 U/L (45-117); ALT (GPT) 15 U/L (12-78); ANION GAP 9 MEQ/L (5-15); AST (GOT) 21 U/L (15-37); BICARBONATE 23.6 MEQ/L (21.0-32.0); BLOOD UREA NITROGEN 15 MG/DL (7-18); CHLORIDE 126 MEQ/L (98-107); GLOMERULAR FILTRATION RATE 171 ML/MIN (>89); MAGNESIUM 2.7 MG/DL (1.5-2.5); POTASSIUM 3.4 MEQ/L (3.5-5.1); TOTAL BILIRUBIN ADULT 0.8 MG/DL (0.2-1.0)
[2017-05-19 06:32] LABS: SODIUM (NA) 159 MEQ/L (136-145)
[2017-05-19] MEDS: POTASSIUM CHLOR 40 MEQ PREMIX 100 ML IV PRN (06:47)
[2017-05-19] MEDS: CHLORHEXIDINE 0.12% (ORAL KIT) 15 ML CUP MT SCH ×2 (08:16→20:25)
[2017-05-19] MEDS: LACTULOSE SYRUP 20 GM/30 ML CUP PO SCH (08:22)
[2017-05-19] MEDS: DOCUSATE SODIUM 100 MG/10 ML UDC PO SCH ×2 (08:22→20:25)
[2017-05-19] MEDS: levETIRAcetam INJ 500 MG in SODIUM CHLORIDE 0.9% INJ 100 ML IV SCH ×2 (08:22→20:24)
[2017-05-19] MEDS: POLYETHYLENE GLYCOL 17 GM PKG PO SCH ×2 (08:22→20:24)
[2017-05-19] MEDS: BACITRACIN TOP OINT 15 GM TUBE TOP SCH ×2 (08:23→20:27)
[2017-05-19] MEDS: SENNOSIDES SYRUP 8.8 MG/5 ML CUP PO SCH ×2 (08:23→20:25)
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
[2017-05-19] MEDS ORDERED: MINERAL OIL LIQUID 30 ML CUP PO ONE (09:00)
[2017-05-19] MEDS ORDERED: METHYLNALTREXONE BROMIDE 12 MG/0.6 ML VIAL SQ ONE (09:00)
[2017-05-19] MEDS ORDERED: GLYCERIN ADULT 2 GM SUPP RECTAL ONE (09:00)
[2017-05-19] MEDS: LACTULOSE SYRUP 20 GM/30 ML CUP OG-TUBE SCH ×3 (10:18→23:33)
[2017-05-19 10:26] LABS: BANDS 15 % (0-6); BASOPHILS 1 % (0-2); MYELOCYTES 1 % (0-0); NEUTROPHIL # MANUAL DIFF 11.1 TH/MM3 (1.8-7.7); PLATELET ESTIMATE SMEAR NORMAL (NORMAL); PLATELET MORPHOLOGY NORMAL (NORMAL); POLYS (SEG NEUTROPHILS) 69 % (16-70); WBC DIFF SAMPLE 100
[2017-05-19 10:27] LABS: SCAN/DIFF FINAL DIFF MANUAL
[2017-05-19] MEDS: ENOXAPARIN SODIUM 40 MG/0.4 ML SYRINGE SQ SCH (10:38)
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
--- NOTE | 2017-05-19 15:22 | RADRPT ---
EXAM DATE/TIME: 05/19/2017 13:17 [place] COMPARISON: No previous studies available for comparison. INDICATIONS : Subarachnoid hemorrhage. MEDICAL HISTORY : Unable to obtain. SURGICAL HISTORY : Unable to obtain. ENCOUNTER: Initial ACUITY: 1 week PAIN SCORE: Nonresponsive. LOCATION: Bilateral cranial Current Exam: May 19, 2017 Rose Ratio: Right: 3.0 Left: 1.5 Nuñez Ratio: Right: 2.8 Left: 1.5 FINDINGS: Examination performed at bedside. Real-time ultrasound with the assistance of color and spectral Dop pler was utilized to evaluate the intracerebral circulation. Time-averaged maximal velocities are ca lculated in cm/s. CONCLUSION: Mild elevation of ratios on the right that would suggest developing vasospasm. Ernie Stapleton MD FACR on May 19, 2017 at 15:18 Board Certified Radiologist. This report was verified electronically.
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
[2017-05-19 17:56] LABS: BLOOD GAS BASE EXCESS 0.2 mmol/L (-2-2); BLOOD GAS CARBOXYHEMOGLOBIN 1.1 % (0-4); BLOOD GAS HCO3 23 mmol/L (22-26); BLOOD GAS METHEMOGLOBIN 0.9 % (0-2); BLOOD GAS O2 HGB SATURATION 93 % (90-100); BLOOD GAS OXYGEN CONTENT 15.5 Vol % (12.0-20.0); BLOOD GAS PCO2 27 mmHg (38-42); BLOOD GAS PO2 81 mmHg (61-120); BLOOD GAS TOTAL HGB 11.8 G/DL (12.0-16.0); TEMP CORR TO 98.6
[2017-05-19 17:57] LABS: CRITICAL VALUE YES; OXYGEN DEVICE VENTILATOR
[2017-05-19 18:00] LABS: DRAW SITE ART LINE; FIO2 70 %; STAT YES
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
[2017-05-19] MEDS: PANTOPRAZOLE SODIUM 40 MG VIAL IVP SCH (20:25)
[2017-05-20] VITALS (22 sets, daily range): BP systolic 125–158; BP diastolic 61–75; PULSE 98–116; RESP 28–30; TEMP 98.1–101.6; O2SAT 93–99
[2017-05-20] MEDS: fentaNYL DRIP 250 ML IV PRN ×5 (00:17→20:48)
[2017-05-20] MEDS: PROPOFOL 1000 MG/100 ML IV PRN ×7 (00:17→23:14)
[2017-05-20] MEDS: NOREPINEPHRINE INJ 4 MG in SODIUM CHLOR 0.9% 250 ML INJ 246 ML IV PRN ×3 (01:00→10:38)
[2017-05-20] MEDS: RESP: SODIUM CHLORIDE 3% 4 ML NEB NEB SCH ×6 (03:12→23:02)
[2017-05-20] MEDS: RESP: ALBUTEROL 2.5 MG/IPRATROPIUM 0.5 MG NEB (SCH) NEB ×6 (03:12→23:02)
[2017-05-20] MEDS: CHLORHEXIDINE GLUCONATE 2 % 1 PACK (2 CLOTHS) TOP SCH (04:00)
[2017-05-20] MEDS: CISATRACURIUM INJ 100 MG in SODIUM CHLOR 0.9% 250 ML INJ 250 ML IV PRN ×4 (04:00→10:37)
[2017-05-20 04:58] LABS: BLOOD GAS BASE EXCESS 0.8 mmol/L (-2-2); BLOOD GAS CARBOXYHEMOGLOBIN 1.1 % (0-4); BLOOD GAS HCO3 25 mmol/L (22-26); BLOOD GAS METHEMOGLOBIN 0.9 % (0-2); BLOOD GAS O2 HGB SATURATION 91 % (90-100); BLOOD GAS OXYGEN CONTENT 13.6 Vol % (12.0-20.0); BLOOD GAS PCO2 40 mmHg (38-42); BLOOD GAS PO2 73 mmHg (61-120); BLOOD GAS TOTAL HGB 10.6 G/DL (12.0-16.0)
[2017-05-20 04:59] LABS: CRITICAL VALUE NO; DRAW SITE ART LINE; FIO2 60 %; OXYGEN DEVICE VENTILATOR; STAT NO; VENT SETTINGS 28/650/IT0.9/10PEEP
[2017-05-20] MEDS: MIDAZOLAM 100 MG/100 ML INJ 100 ML IV PRN ×3 (05:25→21:32)
[2017-05-20] MEDS: LACTULOSE SYRUP 20 GM/30 ML CUP OG-TUBE SCH ×3 (05:25→18:11)
[2017-05-20] MEDS: PIPERACIL-TAZO 3.375 GM PREMIX 50 ML IV SCH ×3 (05:26→18:18)
[2017-05-20] MEDS: ARTIFICIAL TEARS OPTH SOLN 15 ML BTL EACH EYE SCH ×3 (05:26→20:51)
--- NOTE | 2017-05-20 05:30 | RADRPT ---
EXAM DATE/TIME: 05/20/2017 04:21 [facility] COMPARISON: CHEST SINGLE AP, May 19, 2017, 4:30. INDICATIONS : Respiratory failure. MEDICAL HISTORY : None. SURGICAL HISTORY : None. ENCOUNTER: Subsequent ACUITY: 1 week PAIN SCORE: Non-responsive. LOCATION: Bilateral chest FINDINGS: A single view of the chest demonstrates endotracheal tube in satisfactory position. NG enters stomach . Basilar airspace consolidation and pleural effusions similar to May 19. No pneumothorax. CONCLUSION: 1. Basilar airspace disease and pleural effusions similar to May 19. No pneumothorax. Santiago Dodd MD on May 20, 2017 at 5:28 Board Certified Radiologist. This report was verified electronically.
[2017-05-20 05:50] LABS: AUTOMATED NEUTROPHIL # 11.9 TH/MM3 (1.8-7.7); BASOPHIL % 0.3 % (0.0-2.0); EOSINOPHIL # 0.3 TH/MM3 (0-0.4); EOSINOPHIL % 2.1 % (0.0-4.0); HEMATOCRIT 29.1 % (39.0-51.0); HEMO FLAGS DIFF FINAL; LYMPH % 6.9 % (9.0-44.0); MEAN CELL VOLUME 93.6 FL (80.0-100.0); MEAN CORPUSCULAR HEMOGLOBIN 31.4 PG (27.0-34.0); MEAN CORPUSCULAR HGB CONC 33.5 % (32.0-36.0); MONO % 6.2 % (0.0-8.0); NEUT % 84.5 % (16.0-70.0); PLATELET COUNT 308 TH/MM3 (150-450); RED BLOOD COUNT 3.11 MIL/MM3 (4.50-5.90); RED CELL DISTRIBUTION WIDTH 14.4 % (11.6-17.2); WHITE BLOOD COUNT 14.1 TH/MM3 (4.0-11.0)
[2017-05-20] MEDS: INSULIN NovoLIN REGULAR SUPPLEMENTAL SCALE SQ SCH ×3 (06:00→18:00)
[2017-05-20 06:23] LABS: ALKALINE PHOSPHATASE 138 U/L (45-117); ALT (GPT) 16 U/L (12-78); ANION GAP 6 MEQ/L (5-15); AST (GOT) 21 U/L (15-37); BICARBONATE 26.8 MEQ/L (21.0-32.0); BLOOD UREA NITROGEN 11 MG/DL (7-18); CHLORIDE 124 MEQ/L (98-107); GLOMERULAR FILTRATION RATE 150 ML/MIN (>89); MAGNESIUM 2.5 MG/DL (1.5-2.5); POTASSIUM 3.4 MEQ/L (3.5-5.1); TOTAL BILIRUBIN ADULT 1.4 MG/DL (0.2-1.0)
[2017-05-20 06:27] LABS: SODIUM (NA) 157 MEQ/L (136-145)
[2017-05-20] MEDS: POTASSIUM CHLOR 40 MEQ PREMIX 100 ML IV PRN (06:51)
[2017-05-20] MEDS: CHLORHEXIDINE 0.12% (ORAL KIT) 15 ML CUP MT SCH ×2 (08:00→20:20)
[2017-05-20] MEDS: BACITRACIN TOP OINT 15 GM TUBE TOP SCH ×2 (08:37→20:51)
[2017-05-20] MEDS: SENNOSIDES SYRUP 8.8 MG/5 ML CUP PO SCH ×2 (08:37→20:51)
[2017-05-20] MEDS: DOCUSATE SODIUM 100 MG/10 ML UDC PO SCH ×2 (08:37→20:51)
[2017-05-20] MEDS: POLYETHYLENE GLYCOL 17 GM PKG PO SCH ×2 (08:37→20:51)
[2017-05-20] MEDS: levETIRAcetam INJ 500 MG in SODIUM CHLORIDE 0.9% INJ 100 ML IV SCH ×2 (08:37→20:49)
[2017-05-20] MEDS: POTASSIUM CHLORIDE 25 MEQ EFFERVESCENT TAB NG SCH ×2 (09:53→20:50)
[2017-05-20] MEDS: BUMETANIDE INJ 1 MG/4 ML VIAL IV PUSH SCH (09:53)
[2017-05-20] MEDS: ENOXAPARIN SODIUM 40 MG/0.4 ML SYRINGE SQ SCH (09:54)
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
[2017-05-20] MEDS ORDERED: NOREPINEPHRINE IV PRN (11:30)
[2017-05-20] MEDS ORDERED: CISATRACURIUM IV PRN (11:30)
[2017-05-20] MEDS ORDERED: SODIUM CHLORID 0.9% IV PRN (11:30)
[2017-05-20] MEDS ORDERED: SODIUM CHLOR 0.9% IV PRN (11:30)
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
[2017-05-20] MEDS: ACETAMINOPHEN 1000 MG/100 ML VIAL IV PRN (12:32)
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
--- NOTE | 2017-05-20 13:25 | EKG ---
Date Performed: 05/19/2017 Time Performed: 15:41:58 PTAGE: 57 years EKG: Sinus tachycardia with frequent PACs. Lead(s) unsuitable for analysis: V3 Extensive ST-T ch anges are nonspecific Low QRS voltages in limb leads Borderline ECG NO PREVIOUS TRACING Since the prior tracing, there has been an overall reduction in volta ge in some variation in the nonspecific ST-T wave changes, but no other significant serial change. DOCTOR: Gisselle Lion Interpretating Date/Time 05/20/2017 13:24:31
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
[2017-05-20] MEDS ORDERED: SODIUM CHLORIDE 23.4% INJ 240 MEQ in SYRINGE/BAG 1 EA IV ONE ×2 (14:15→14:30)
[2017-05-20] MEDS: 3% SALINE INJ 500 ML IV SCH ×2 (15:00→18:11)
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
[2017-05-20] MEDS: CISATRACURIUM INJ 200 MG in SODIUM CHLORID 0.9% 500 ML INJ 480 ML IV PRN (20:44)
[2017-05-20] MEDS: PANTOPRAZOLE SODIUM 40 MG VIAL IVP SCH (20:48)
[2017-05-20] MEDS ORDERED: PHENYLEPHRINE HCL 10 MG/ML VIAL ONE ×3 (22:04→22:49)
[2017-05-20] MEDS ORDERED: NOREPINEPHRINE INJ 8 MG in SODIUM CHLOR 0.9% 250 ML INJ 242 ML IV PRN (22:15)
[2017-05-20] MEDS ORDERED: TERBUTALINE INJ 1 MG/ML AMP SQ PRN (22:15)
[2017-05-21] VITALS (20 sets, daily range): BP systolic 96–168; BP diastolic 48–75; PULSE 96–119; RESP 30; TEMP 99.3–101.1; O2SAT 94–97
[2017-05-21] MEDS: PIPERACIL-TAZO 3.375 GM PREMIX 50 ML IV SCH ×4 (00:04→18:09)
[2017-05-21] MEDS: LACTULOSE SYRUP 20 GM/30 ML CUP OG-TUBE SCH ×4 (00:04→18:09)
[2017-05-21 00:30] LABS: MAGNESIUM 2.4 MG/DL (1.5-2.5); POTASSIUM 3.5 MEQ/L (3.5-5.1)
[2017-05-21] MEDS: MIDAZOLAM 100 MG/100 ML INJ 100 ML IV PRN ×4 (00:30→21:19)
[2017-05-21] MEDS: POTASSIUM CHLOR 40 MEQ PREMIX 100 ML IV PRN (00:38)
[2017-05-21] MEDS: PROPOFOL 1000 MG/100 ML IV PRN ×10 (00:58→22:34)
[2017-05-21] MEDS: CHLORHEXIDINE GLUCONATE 2 % 1 PACK (2 CLOTHS) TOP SCH (01:51)
[2017-05-21] MEDS: RESP: ALBUTEROL 2.5 MG/IPRATROPIUM 0.5 MG NEB (SCH) NEB ×5 (02:49→21:18)
[2017-05-21] MEDS: RESP: SODIUM CHLORIDE 3% 4 ML NEB NEB SCH ×5 (02:49→21:19)
[2017-05-21] MEDS: fentaNYL DRIP 250 ML IV PRN ×3 (03:30→17:42)
[2017-05-21] MEDS: CISATRACURIUM INJ 200 MG in SODIUM CHLORID 0.9% 500 ML INJ 480 ML IV PRN ×2 (03:30→13:43)
[2017-05-21] MEDS: ACETAMINOPHEN 1000 MG/100 ML VIAL IV PRN ×2 (04:05→11:17)
[2017-05-21 04:26] LABS: AUTOMATED NEUTROPHIL # 11.4 TH/MM3 (1.8-7.7); BASOPHIL # 0.1 TH/MM3 (0-0.2); BASOPHIL % 0.5 % (0.0-2.0); EOSINOPHIL # 0.3 TH/MM3 (0-0.4); EOSINOPHIL % 2.2 % (0.0-4.0); HEMATOCRIT 29.7 % (39.0-51.0); LYMPH % 11.1 % (9.0-44.0); LYMPHOCYTE # 1.6 TH/MM3 (1.0-4.8); MEAN CELL VOLUME 94.2 FL (80.0-100.0); MEAN CORPUSCULAR HEMOGLOBIN 31.6 PG (27.0-34.0); MEAN CORPUSCULAR HGB CONC 33.6 % (32.0-36.0); MONO % 7.3 % (0.0-8.0); NEUT % 78.9 % (16.0-70.0); PLATELET COUNT 367 TH/MM3 (150-450); RED BLOOD COUNT 3.15 MIL/MM3 (4.50-5.90); RED CELL DISTRIBUTION WIDTH 14.5 % (11.6-17.2); WHITE BLOOD COUNT 14.5 TH/MM3 (4.0-11.0)
[2017-05-21 04:33] LABS: HEMO FLAGS AUTO DIFF
[2017-05-21 04:55] LABS: ALKALINE PHOSPHATASE 123 U/L (45-117); ALT (GPT) 15 U/L (12-78); ANION GAP 7 MEQ/L (5-15); AST (GOT) 28 U/L (15-37); BICARBONATE 27.3 MEQ/L (21.0-32.0); BLOOD UREA NITROGEN 9 MG/DL (7-18); CHLORIDE 127 MEQ/L (98-107); GLOMERULAR FILTRATION RATE 124 ML/MIN (>89); MAGNESIUM 2.4 MG/DL (1.5-2.5); POTASSIUM 3.8 MEQ/L (3.5-5.1); TOTAL BILIRUBIN ADULT 2.1 MG/DL (0.2-1.0)
[2017-05-21 04:56] LABS: SODIUM (NA) 161 MEQ/L (136-145)
[2017-05-21 05:05] LABS: BLOOD GAS BASE EXCESS 0.5 mmol/L (-2-2); BLOOD GAS HCO3 25 mmol/L (22-26); BLOOD GAS O2 HGB SATURATION 96 % (90-100); BLOOD GAS OXYGEN CONTENT 14.1 Vol % (12.0-20.0); BLOOD GAS PCO2 40 mmHg (38-42); BLOOD GAS PO2 105 mmHg (61-120); BLOOD GAS TOTAL HGB 10.4 G/DL (12.0-16.0); CRITICAL VALUE NO; OXYGEN DEVICE VENTILATOR; TEMP CORR TO 98.6
[2017-05-21 05:07] LABS: DRAW SITE ART LINE; FIO2 100 %; STAT NO; VENT SETTINGS 30/650/IT0.9/10PEEP
[2017-05-21] MEDS: ARTIFICIAL TEARS OPTH SOLN 15 ML BTL EACH EYE SCH ×3 (05:08→20:40)
[2017-05-21] MEDS: INSULIN NovoLIN REGULAR SUPPLEMENTAL SCALE SQ SCH ×4 (05:38→18:00)
--- NOTE | 2017-05-21 06:30 | RADRPT ---
EXAM DATE/TIME: 05/21/2017 05:47 [facility] COMPARISON: CHEST SINGLE AP, May 20, 2017, 4:21. INDICATIONS : Shortness of breath. MEDICAL HISTORY : Non-responsive SURGICAL HISTORY : Non-responsive ENCOUNTER: Subsequent ACUITY: 1 week PAIN SCORE: Non-responsive. LOCATION: Bilateral chest FINDINGS: A single view of the chest demonstrates endotracheal tube in good position. NG enters stomach. Bilate ral mostly basilar airspace consolidation and pleural effusions. No pneumothorax. Left central line i n left brachiocephalic vein. CONCLUSION: 1. Bilateral mostly basilar airspace disease and pleural effusions. Support apparatus in satisfactory position. Santiago Dodd MD on May 21, 2017 at 6:27 Board Certified Radiologist. This report was verified electronically.
[2017-05-21 06:50] LABS: BANDS 1 % (0-6); EOSINOPHILS 1 % (0-4); MYELOCYTES 2 % (0-0); NEUTROPHIL # MANUAL DIFF 12.8 TH/MM3 (1.8-7.7); POLYS (SEG NEUTROPHILS) 85 % (16-70); WBC DIFF SAMPLE 100
[2017-05-21 06:51] LABS: PLATELET ESTIMATE SMEAR NORMAL (NORMAL); PLATELET MORPHOLOGY NORMAL (NORMAL); SCAN/DIFF FINAL DIFF MANUAL
[2017-05-21] MEDS: CHLORHEXIDINE 0.12% (ORAL KIT) 15 ML CUP MT SCH ×2 (08:00→20:33)
[2017-05-21] MEDS: levETIRAcetam INJ 500 MG in SODIUM CHLORIDE 0.9% INJ 100 ML IV SCH ×2 (09:03→20:38)
[2017-05-21] MEDS: SENNOSIDES SYRUP 8.8 MG/5 ML CUP PO SCH ×2 (09:04→20:38)
[2017-05-21] MEDS: BUMETANIDE INJ 1 MG/4 ML VIAL IV PUSH SCH (09:04)
[2017-05-21] MEDS: BACITRACIN TOP OINT 15 GM TUBE TOP SCH ×2 (09:05→20:40)
[2017-05-21] MEDS: DOCUSATE SODIUM 100 MG/10 ML UDC PO SCH ×2 (09:05→20:38)
[2017-05-21] MEDS: POLYETHYLENE GLYCOL 17 GM PKG PO SCH ×2 (09:05→20:38)
[2017-05-21] MEDS: POTASSIUM CHLORIDE 25 MEQ EFFERVESCENT TAB NG SCH ×2 (09:05→20:38)
[2017-05-21] MEDS: NOREPINEPHRINE INJ 8 MG in SODIUM CHLOR 0.9% 250 ML INJ 242 ML IV PRN ×3 (09:18→18:56)
[2017-05-21] MEDS: 3% SALINE INJ 500 ML IV SCH (10:22)
[2017-05-21] MEDS: PHENYLEPHRINE INJ 160 MG in SODIUM CHLORID 0.9% 500 ML INJ 484 ML IV PRN (10:25)
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
[2017-05-21] MEDS: SODIUM CHLORID 0.9% 500 ML INJ 500 ML IV SCH (10:59)
[2017-05-21] MEDS: ENOXAPARIN SODIUM 40 MG/0.4 ML SYRINGE SQ SCH (11:44)
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
[2017-05-21] MEDS: PANTOPRAZOLE SODIUM 40 MG VIAL IVP SCH (20:38)
[2017-05-22] VITALS (19 sets, daily range): BP systolic 124–154; BP diastolic 57–68; PULSE 102–118; RESP 30; TEMP 100.2–102.2; O2SAT 93–96
[2017-05-22] MEDS: CHLORHEXIDINE GLUCONATE 2 % 1 PACK (2 CLOTHS) TOP SCH (00:21)
[2017-05-22] MEDS: PIPERACIL-TAZO 3.375 GM PREMIX 50 ML IV SCH ×4 (00:21→17:35)
[2017-05-22] MEDS: LACTULOSE SYRUP 20 GM/30 ML CUP OG-TUBE SCH ×4 (00:21→17:35)
[2017-05-22] MEDS: fentaNYL DRIP 250 ML IV PRN ×4 (00:24→20:42)
[2017-05-22] MEDS: ACETAMINOPHEN 1000 MG/100 ML VIAL IV PRN ×3 (00:34→20:47)
[2017-05-22] MEDS: RESP: SODIUM CHLORIDE 3% 4 ML NEB NEB SCH ×6 (00:42→21:22)
[2017-05-22] MEDS: RESP: ALBUTEROL 2.5 MG/IPRATROPIUM 0.5 MG NEB (SCH) NEB ×5 (00:42→17:15)
[2017-05-22] MEDS: PROPOFOL 1000 MG/100 ML IV PRN ×9 (00:46→22:15)
[2017-05-22] MEDS: NOREPINEPHRINE INJ 8 MG in SODIUM CHLOR 0.9% 250 ML INJ 242 ML IV PRN ×4 (02:30→18:22)
[2017-05-22] MEDS: CISATRACURIUM INJ 200 MG in SODIUM CHLORID 0.9% 500 ML INJ 480 ML IV PRN ×3 (02:30→18:23)
[2017-05-22] MEDS: SODIUM CHLORID 0.9% 500 ML INJ 500 ML IV SCH (02:30)
[2017-05-22] MEDS: 3% SALINE INJ 500 ML IV SCH (02:47)
[2017-05-22] MEDS: ARTIFICIAL TEARS OPTH SOLN 15 ML BTL EACH EYE SCH ×3 (05:24→20:49)
[2017-05-22] MEDS: MIDAZOLAM 100 MG/100 ML INJ 100 ML IV PRN ×3 (05:24→20:46)
[2017-05-22 05:40] LABS: AUTOMATED NEUTROPHIL # 11.5 TH/MM3 (1.8-7.7); BASOPHIL # 0.1 TH/MM3 (0-0.2); BASOPHIL % 0.7 % (0.0-2.0); EOSINOPHIL # 0.5 TH/MM3 (0-0.4); EOSINOPHIL % 3.6 % (0.0-4.0); HEMATOCRIT 28.6 % (39.0-51.0); LYMPH % 12.8 % (9.0-44.0); LYMPHOCYTE # 1.9 TH/MM3 (1.0-4.8); MEAN CELL VOLUME 94.7 FL (80.0-100.0); MEAN CORPUSCULAR HEMOGLOBIN 31.4 PG (27.0-34.0); MEAN CORPUSCULAR HGB CONC 33.1 % (32.0-36.0); MONO % 5.4 % (0.0-8.0); NEUT % 77.5 % (16.0-70.0); PLATELET COUNT 412 TH/MM3 (150-450); RED BLOOD COUNT 3.02 MIL/MM3 (4.50-5.90); RED CELL DISTRIBUTION WIDTH 14.5 % (11.6-17.2); WHITE BLOOD COUNT 14.9 TH/MM3 (4.0-11.0)
[2017-05-22 05:45] LABS: HEMO FLAGS AUTO DIFF
[2017-05-22] MEDS: INSULIN NovoLIN REGULAR SUPPLEMENTAL SCALE SQ SCH ×4 (06:00→17:35)
[2017-05-22 06:05] LABS: ANION GAP 10 MEQ/L (5-15)
[2017-05-22 06:09] LABS: ALKALINE PHOSPHATASE 110 U/L (45-117); ALT (GPT) 16 U/L (12-78); AST (GOT) 39 U/L (15-37); BICARBONATE 26.1 MEQ/L (21.0-32.0); BLOOD UREA NITROGEN 10 MG/DL (7-18); CHLORIDE 123 MEQ/L (98-107); GLOMERULAR FILTRATION RATE 128 ML/MIN (>89); POTASSIUM 3.5 MEQ/L (3.5-5.1); TOTAL BILIRUBIN ADULT 2.2 MG/DL (0.2-1.0)
[2017-05-22 06:11] LABS: SODIUM (NA) 159 MEQ/L (136-145)
[2017-05-22] MEDS: POTASSIUM CHLOR 40 MEQ PREMIX 100 ML IV PRN (06:30)
[2017-05-22] MEDS: levETIRAcetam INJ 500 MG in SODIUM CHLORIDE 0.9% INJ 100 ML IV SCH ×2 (07:47→20:47)
[2017-05-22] MEDS: POTASSIUM CHLORIDE 25 MEQ EFFERVESCENT TAB NG SCH ×2 (07:47→21:33)
[2017-05-22] MEDS: CHLORHEXIDINE 0.12% (ORAL KIT) 15 ML CUP MT SCH ×2 (07:48→20:00)
[2017-05-22] MEDS: DOCUSATE SODIUM 100 MG/10 ML UDC PO SCH ×2 (07:48→20:47)
[2017-05-22] MEDS: BUMETANIDE INJ 1 MG/4 ML VIAL IV PUSH SCH (07:48)
[2017-05-22] MEDS: SENNOSIDES SYRUP 8.8 MG/5 ML CUP PO SCH ×2 (07:48→20:48)
[2017-05-22] MEDS: SODIUM CHLORIDE 0.9% FLUSH 10 ML FLUSH IV FLUSH PRN (07:48)
[2017-05-22] MEDS: BACITRACIN TOP OINT 15 GM TUBE TOP SCH ×2 (07:48→20:48)
[2017-05-22] MEDS: POLYETHYLENE GLYCOL 17 GM PKG PO SCH ×2 (07:48→20:48)
[2017-05-22 08:00] LABS: BANDS 4 % (0-6); EOSINOPHILS 3 % (0-4); METAMYELOCYTES 3 % (0-1); MYELOCYTES 1 % (0-0); NEUTROPHIL # MANUAL DIFF 12.8 TH/MM3 (1.8-7.7); PLATELET ESTIMATE SMEAR NORMAL (NORMAL); PLATELET MORPHOLOGY NORMAL (NORMAL); POLYS (SEG NEUTROPHILS) 78 % (16-70); SCAN/DIFF FINAL DIFF MANUAL; WBC DIFF SAMPLE 100
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
--- NOTE | 2017-05-22 10:53 | HHI.PR ---
Neuropsych Emotional Emotional: UnabletoAssess: Emotional, Anxious/Fearful, Depressed/Sad, Hostile/ Resentful, Irritable/Angry/Frustrate, Labile, Constricted/Blunted Behavior Behavior: Unable to Asses: Behavior, Coping/Acceptance, Cooperative w/ Treatment, Motivation, Frustration Tolerance/[place], Impulsive/Agitated, Suicidal/ Homicidal Risk Cognitive Cognitive: Unable to Asses: Cognitive, Attention/Concentration, Confused/ Orientation, Insight/Awareness, Judgement/Problem-Solving, Memory Psychosocial Psychosocial: Unable to Asses: Psychosocial, Family/Other Adjustment, Realistic Expectation, Self-Esteem/Confidence Progress Notes/Response to Tx Contents of Sessions: Adjustment, Level of Consciousness Time with Patient: 30 minutes Premorbid psychological status Premorbid Cognitive, Emotional and Behavioral Status: Stable. The patient has high school education and a solid work history prior to this injury. The patient has no psychiatric difficulties, as described above. Substance abuse history is unremarkable. Behavioral Reactions of Patient and Family/Support System: Stable. The patient s family is experiencing ongoing issues of adjustment given the nature of the injury, and this aspect of recovery will require ongoing monitoring. Emotional/Behavioral Status of Patient and Family/Support System: Stable. Pertinent issues, if appropriate to this patients clinical care, are described in detail above. Maximizing acute care outcome It is recommended that the patient be monitored for emergent behavioral impulsivity as the medical condition evolves. This patients neuropathological challenges may limit their rehabilitation potential going forward, and these challenges will require specialized therapeutic skills to maximize outcome. Additionally, the patients family is experiencing ongoing issues of adjustment given the traumatic nature of the injury, and they may benefit from ongoing psychological assistance. Anticipated Problems Ongoing areas of concern will include behavioral impulsivity, lack of insight and judgment, which is expected to improve with time and treatment. Presently , the patient is sedated and intubated. Treatment Plan This clinician will continue to follow with you throughout the course of this patients acute care treatment, and I will be available to meet with the patient s family/support system to facilitate their understanding and the ongoing care of their family member. The goals of neuropsychological intervention shall be both educational and supportive to the family/support system as is deemed clinically appropriate. [facility] Level: I:No response-total assistance Impression This 57 year old man is s[place]p [place] [facility] [place] with significant brain trauma. 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 This is day 13 post injury. There has been no neurobehavioral change. I have deferred talking with patient's , until after she discusses plan of care with Dr. Rome. In my clinical opinion, there is no chance for a meaningful neurobehavioral recovery from this injury. He remains a [place]. I will continue to follow. Hernando Cazares PhD May 22, 2017 10:53 am
[2017-05-22] MEDS: ENOXAPARIN SODIUM 40 MG/0.4 ML SYRINGE SQ SCH (11:57)
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
[2017-05-22] MEDS: PANTOPRAZOLE SODIUM 40 MG VIAL IVP SCH (20:48)
[2017-05-23] VITALS (16 sets, daily range): BP systolic 125–168; BP diastolic 53–61; PULSE 108–123; RESP 24–30; TEMP 101.8–104.9; O2SAT 93–100
[2017-05-23] MEDS: PROPOFOL 1000 MG/100 ML IV PRN ×8 (01:00→22:23)
[2017-05-23] MEDS: RESP: ALBUTEROL 2.5 MG/3 ML NEB (PRN) NEB ×3 (01:36→12:29)
[2017-05-23] MEDS: fentaNYL DRIP 250 ML IV PRN ×4 (02:00→23:51)
[2017-05-23] MEDS: CHLORHEXIDINE GLUCONATE 2 % 1 PACK (2 CLOTHS) TOP SCH (03:47)
[2017-05-23] MEDS: RESP: SODIUM CHLORIDE 3% 4 ML NEB NEB SCH ×5 (04:00→16:00)
[2017-05-23] MEDS: ACETAMINOPHEN 1000 MG/100 ML VIAL IV PRN ×4 (04:54→22:16)
[2017-05-23] MEDS: MIDAZOLAM 100 MG/100 ML INJ 100 ML IV PRN ×3 (05:26→21:01)
[2017-05-23] MEDS: INSULIN NovoLIN REGULAR SUPPLEMENTAL SCALE SQ SCH ×4 (06:00→18:00)
[2017-05-23 06:13] LABS: AUTOMATED NEUTROPHIL # 16.3 TH/MM3 (1.8-7.7); BASOPHIL # 0.2 TH/MM3 (0-0.2); BASOPHIL % 0.8 % (0.0-2.0); EOSINOPHIL # 0.3 TH/MM3 (0-0.4); EOSINOPHIL % 1.7 % (0.0-4.0); HEMATOCRIT 28.5 % (39.0-51.0); LYMPH % 8.1 % (9.0-44.0); LYMPHOCYTE # 1.6 TH/MM3 (1.0-4.8); MEAN CELL VOLUME 94.8 FL (80.0-100.0); MEAN CORPUSCULAR HEMOGLOBIN 30.7 PG (27.0-34.0); MEAN CORPUSCULAR HGB CONC 32.4 % (32.0-36.0); MONO % 6.7 % (0.0-8.0); NEUT % 82.7 % (16.0-70.0); PLATELET COUNT 471 TH/MM3 (150-450); RED BLOOD COUNT 3.01 MIL/MM3 (4.50-5.90); RED CELL DISTRIBUTION WIDTH 14.5 % (11.6-17.2); WHITE BLOOD COUNT 19.7 TH/MM3 (4.0-11.0)
[2017-05-23 06:16] LABS: HEMO FLAGS AUTO DIFF
[2017-05-23 06:48] LABS: ALKALINE PHOSPHATASE 256 U/L (45-117); ALT (GPT) 17 U/L (12-78); ANION GAP 8 MEQ/L (5-15); AST (GOT) 60 U/L (15-37); BICARBONATE 29.2 MEQ/L (21.0-32.0); BLOOD UREA NITROGEN 10 MG/DL (7-18); CHLORIDE 120 MEQ/L (98-107); GLOMERULAR FILTRATION RATE 114 ML/MIN (>89); TOTAL BILIRUBIN ADULT 2.4 MG/DL (0.2-1.0)
[2017-05-23] MEDS: PIPERACIL-TAZO 3.375 GM PREMIX 50 ML IV SCH ×5 (06:49→23:51)
[2017-05-23] MEDS: LACTULOSE SYRUP 20 GM/30 ML CUP OG-TUBE SCH ×5 (06:49→23:51)
[2017-05-23] MEDS: ARTIFICIAL TEARS OPTH SOLN 15 ML BTL EACH EYE SCH ×3 (06:49→20:15)
[2017-05-23 06:50] LABS: SODIUM (NA) 157 MEQ/L (136-145)
[2017-05-23 07:52] LABS: BANDS 9 % (0-6); METAMYELOCYTES 1 % (0-1); MYELOCYTES 1 % (0-0); NEUTROPHIL # MANUAL DIFF 18.5 TH/MM3 (1.8-7.7); POLYS (SEG NEUTROPHILS) 83 % (16-70); WBC DIFF SAMPLE 100
[2017-05-23 07:55] LABS: PLATELET ESTIMATE SMEAR NORMAL (NORMAL); PLATELET MORPHOLOGY NORMAL (NORMAL)
[2017-05-23 07:56] LABS: SCAN/DIFF FINAL DIFF MANUAL
[2017-05-23] MEDS: CHLORHEXIDINE 0.12% (ORAL KIT) 15 ML CUP MT SCH ×2 (08:00→19:46)
[2017-05-23] MEDS: BACITRACIN TOP OINT 15 GM TUBE TOP SCH ×2 (09:00→20:17)
[2017-05-23] MEDS: BUMETANIDE INJ 1 MG/4 ML VIAL IV PUSH SCH (09:05)
[2017-05-23] MEDS: SENNOSIDES SYRUP 8.8 MG/5 ML CUP PO SCH ×2 (09:05→19:56)
[2017-05-23] MEDS: levETIRAcetam INJ 500 MG in SODIUM CHLORIDE 0.9% INJ 100 ML IV SCH ×2 (09:06→19:53)
[2017-05-23] MEDS: POLYETHYLENE GLYCOL 17 GM PKG PO SCH ×2 (09:06→19:56)
[2017-05-23] MEDS: POTASSIUM CHLORIDE 25 MEQ EFFERVESCENT TAB NG SCH ×2 (09:07→19:57)
[2017-05-23] MEDS: DOCUSATE SODIUM 100 MG/10 ML UDC PO SCH ×2 (09:07→19:57)
[2017-05-23] MEDS: NOREPINEPHRINE INJ 8 MG in SODIUM CHLOR 0.9% 250 ML INJ 242 ML IV PRN ×3 (09:11→21:52)
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
[2017-05-23] MEDS: SODIUM CHLORID 0.9% 500 ML INJ 500 ML IV SCH (11:00)
[2017-05-23] MEDS: ENOXAPARIN SODIUM 40 MG/0.4 ML SYRINGE SQ SCH (11:15)
[2017-05-23] MEDS: CISATRACURIUM INJ 200 MG in SODIUM CHLORID 0.9% 500 ML INJ 480 ML IV PRN ×5 (11:20→21:54)
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
[2017-05-23] MEDS: 3% SALINE INJ 500 ML IV SCH ×2 (12:09→23:52)
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
[2017-05-23] MEDS: PHENYLEPHRINE INJ 160 MG in SODIUM CHLORID 0.9% 500 ML INJ 484 ML IV PRN ×2 (16:20→21:52)
--- NOTE | 2017-05-23 19:03 | HHI.HCPN ---
Spoke with Beckie via phone. She is mark solano her mother [place] from the airport this [place]. She intends to come to the hospital on 05/24/17 with plans to proceed with withdrawal of life support. She understands Nmbex will need to be weaned prior to withdrawal of life support. She does not want us to wean Nimbex tonight as she hopes to be here when he dies and doesn't want to take a chance that he will before then. Of course, she understands he could prior and hopes to be called for significant clinical change. She will notify nurses when she is ready to start weaning process in preparation for withdrawal of life support. . Fadumo Posada May 23, 2017 19:03
[2017-05-23] MEDS: PANTOPRAZOLE SODIUM 40 MG VIAL IVP SCH (19:47)
[2017-05-24] VITALS (9 sets, daily range): BP systolic 110–152; BP diastolic 54–78; PULSE 88–112; RESP 24; TEMP 96.1–102.7; O2SAT 94–100
[2017-05-24 00:33] LABS: CSF LYMPHOCYTES 0 %; CSF NEUTROPHILS 0 %; SUPERNATE COLOR TUBE #1 CLEAR (CLEAR); WBC TUBE #1 0 /MM3 (0-10)
[2017-05-24] MEDS: PROPOFOL 1000 MG/100 ML IV PRN ×4 (01:16→09:13)
[2017-05-24] MEDS: CISATRACURIUM INJ 200 MG in SODIUM CHLORID 0.9% 500 ML INJ 480 ML IV PRN (02:14)
[2017-05-24 03:10] LABS: CRITICAL VALUE YES
[2017-05-24] MEDS: CHLORHEXIDINE GLUCONATE 2 % 1 PACK (2 CLOTHS) TOP SCH (03:40)
[2017-05-24] MEDS: LACTULOSE SYRUP 20 GM/30 ML CUP OG-TUBE SCH ×2 (04:52→11:25)
[2017-05-24] MEDS: PIPERACIL-TAZO 3.375 GM PREMIX 50 ML IV SCH ×2 (04:52→11:25)
[2017-05-24] MEDS: ARTIFICIAL TEARS OPTH SOLN 15 ML BTL EACH EYE SCH (04:53)
[2017-05-24] MEDS: INSULIN NovoLIN REGULAR SUPPLEMENTAL SCALE SQ SCH ×2 (05:45)
[2017-05-24] MEDS: MIDAZOLAM 100 MG/100 ML INJ 100 ML IV PRN (06:58)
[2017-05-24] MEDS: fentaNYL DRIP 250 ML IV PRN (07:49)
[2017-05-24] MEDS: CHLORHEXIDINE 0.12% (ORAL KIT) 15 ML CUP MT SCH (08:00)
[2017-05-24] MEDS: levETIRAcetam INJ 500 MG in SODIUM CHLORIDE 0.9% INJ 100 ML IV SCH (08:02)
[2017-05-24] MEDS: BUMETANIDE INJ 1 MG/4 ML VIAL IV PUSH SCH (08:02)
[2017-05-24] MEDS: SENNOSIDES SYRUP 8.8 MG/5 ML CUP PO SCH (08:02)
[2017-05-24] MEDS: DOCUSATE SODIUM 100 MG/10 ML UDC PO SCH (08:02)
[2017-05-24] MEDS: POLYETHYLENE GLYCOL 17 GM PKG PO SCH (08:03)
[2017-05-24] MEDS: BACITRACIN TOP OINT 15 GM TUBE TOP SCH (08:03)
[2017-05-24] MEDS: POTASSIUM CHLORIDE 25 MEQ EFFERVESCENT TAB NG SCH (08:03)
[2017-05-24] MEDS: SODIUM CHLORID 0.9% 500 ML INJ 500 ML IV SCH (11:00)
[2017-05-24] MEDS: ENOXAPARIN SODIUM 40 MG/0.4 ML SYRINGE SQ SCH (11:25)
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
--- NOTE | 2017-05-26 09:29 | RADRPT ---
EXAM DATE/TIME: 05/23/2017 02:04 [place] COMPARISON: CHEST SINGLE AP, May 21, 2017, 5:47. INDICATIONS : Re-evaluate ETT MEDICAL HISTORY : None. SURGICAL HISTORY : None. ENCOUNTER: Subsequent ACUITY: 1 week PAIN SCORE: Non-responsive. LOCATION: Bilateral chest FINDINGS: A single view of the chest demonstrates persistent bibasilar areas of consolidation/effusion with pos sibly some improving aeration in the right base. The tracheal tube is appropriately positioned above the dagoberto at the level of the thoracic inlet. Nasogastric tube traverses the GE junction and extends off the inferior aspect of the film. Heart size is normal. Osseous structures are intact.. CONCLUSION: 1. Persistent bibasilar areas of consolidation/effusion with possible some improvement on the right. 2. Endotracheal tube appropriately positioned above the dagoberto at the thoracic inlet. Omkar Mooney MD on May 23, 2017 at 2:41 Board Certified Radiologist. This report was verified electronically.
== END 2017-05-24 15:11 | disposition expired | DRG 25 ==
LOC: NEPI 17:43 → NEDA 18:29 → EDBD 18:29 → N03A 18:35
PROVIDERS: ADMIT Surgery; ATTEND Surgery
PROC: 4A103BD Monitoring of Intracranial Pressure, Percutaneous Approach (ICD-10-PCS; principal; 2017-05-09)
PROC: 00H032Z Insertion of Monitoring Device into Brain, Percutaneous Approach (ICD-10-PCS; 2017-05-09)
PROC: 009630Z Drainage of Cerebral Ventricle with Drainage Device, Percutaneous Approach (ICD-10-PCS; 2017-05-09)
PROC: 5A1955Z Respiratory Ventilation, Greater than 96 Consecutive Hours (ICD-10-PCS; 2017-05-09)
PROC: 0BH17EZ Insertion of Endotracheal Airway into Trachea, Via Natural or Artificial Opening (ICD-10-PCS; 2017-05-09)
PROC: 03HY32Z Insertion of Monitoring Device into Upper Artery, Percutaneous Approach (ICD-10-PCS; 2017-05-09)
PROC: 4A133B1 Monitoring of Arterial Pressure, Peripheral, Percutaneous Approach (ICD-10-PCS; 2017-05-09)
PROC: 4A133J1 Monitoring of Arterial Pulse, Peripheral, Percutaneous Approach (ICD-10-PCS; 2017-05-09)
PROC: 05H633Z Insertion of Infusion Device into Left Subclavian Vein, Percutaneous Approach (ICD-10-PCS; 2017-05-09)
DX: S06.5X9A Traumatic subdural hemorrhage with loss of consciousness of unspecified duration, initial encounter (principal); J69.0 Pneumonitis due to inhalation of food and vomit; G93.6 Cerebral edema; J96.01 Acute respiratory failure with hypoxia; J96.02 Acute respiratory failure with hypercapnia; A41.9 Sepsis, unspecified organism; D62 Acute posthemorrhagic anemia; E88.09 Other disorders of plasma-protein metabolism, not elsewhere classified; Z99.11 Dependence on respirator [ventilator] status; E87.0 Hyperosmolality and hypernatremia; F02.80 Dementia in other diseases classified elsewhere, unspecified severity, without behavioral disturbance, psychotic disturbance, mood disturbance, and anxiety; I48.91 Unspecified atrial fibrillation; N28.89 Other specified disorders of kidney and ureter; S00.10XA Contusion of unspecified eyelid and periocular area, initial encounter; S02.0XXA Fracture of vault of skull, initial encounter for closed fracture; V29.9XXA Motorcycle rider (driver) (passenger) injured in unspecified traffic accident, initial encounter; Y92.488 Other paved roadways as the place of occurrence of the external cause; Y93.89 Activity, other specified; S06.6X9A Traumatic subarachnoid hemorrhage with loss of consciousness of unspecified duration, initial encounter; Z51.5 Encounter for palliative care; Z66 Do not resuscitate; F17.210 Nicotine dependence, cigarettes, uncomplicated; F12.90 Cannabis use, unspecified, uncomplicated; R73.9 Hyperglycemia, unspecified; R47.02 Dysphasia; F14.90 Cocaine use, unspecified, uncomplicated
CPT/HCPCS: 31500; 36556; 36600; 36620; 61210; 70450; 70486; 71010; 71260; 72125; 72128; 72131; 72170; 73560; 74177; 76937; 80048; 80053; 80307; 81001; 82435; 82565; 82805; 82947; 82948; 83735; 83930; 84100; 84132; 84155; 84295; 84520; 85007; 85025; 85027; 85610; 85730; 86850; 86900; 86901; 87040; 87070; 87077; 87186; 87205; 87641; 89051; 90471; 93005; 93306; 93886; 94003; 94640; 94664; 94770; 95819; 96374; 96375; 99291; C9113; G0390; J0131; J0330; J0690; J1170; J1650; J1953; J2212; J2250; J2370; J2543; J3010; J3370; J3480; J7030; J7040; J7050; J7613; L0172; Q9967